=== PATIENT | male | born 1965 | race Caucasian/White ===

== ENCOUNTER 2022-08-23 10:32 | Emergency (ER) | payer OTHER, SELFPAY ==
[2022-08-23] VITALS (70 sets, daily range): BP systolic 105–138; BP diastolic 72–104; PULSE 86–107; RESP 16–18; TEMP 36.4–37.2; O2SAT 94–99
--- NOTE | 2022-08-23 10:53 | CRLHL7_ITS ---
For Patients: As a result of the Cures Act, medical imaging exams and procedure reports are released immediately into your electronic medical record. You may view this report before your referring provider. If you have questions, please contact your health care provider. INDICATION: Chest pain TECHNIQUE: Chest radiograph 1 view COMPARISON: None FINDINGS: Mediastinum: The mediastinum is normal in appearance. The heart silhouette is normal in size and morphology. Lung: Both lungs are unremarkable in appearance with small lung volumes. No sign of pleural effusion seen. No pneumothorax is identified. Bone and Soft tissue: Unremarkable for age. IMPRESSION: 1. No acute cardiopulmonary disease is seen. Dictated by: London Zhong MD @ 08/23/2022 12:36:30 (Electronically Signed)
--- NOTE | 2022-08-23 10:56 | ED.CHESTPAIN ---
HPI - Chest Pain General Chief Complaint: Chest Pain <Soham Davis MD - Last Filed: 08/24/22 08:47> Stated Complaint: Chest pains, Sick last 2 days <Soham Davis MD - Last Filed: 08/24/22 08:47> Time Seen by Provider: 08/23/22 10:40 <Soham Davis MD - Last Filed: 08/24/22 08:47> History of Present Illness HPI narrative: Pt is a 56 year old gentleman with no history of coronary disease who presents after having left sided chest pain with radiation to the left jaw for the past 15 hours. Pt has recently been sick with what he describes as a virus with chills cough and shortness of breath. Pt has not had influenza vaccination and is not up to date on his COVID booster. Pt has no diaphoreis, headache, objective recent fever or shortness of breath. No cough. Pt states that he overall does not feel well and that the pain is 6/10 in intensity and is dull. No other radiculopathy. No medications taken prior to coming in. <Soham Davis MD - Last Filed: 08/24/22 08:47> Related Data Home Medications: Home Medications Medication Instructions Recorded Confirmed pantoprazole 20 mg tablet,delayed mg PO 08/23/22 release <Soham Davis MD - Last Filed: 08/24/22 08:47> Allergies/Adverse Reactions: Allergies Allergy/AdvReac Type Severity Reaction Status Date / Time No Known Drug Allergies Allergy Verified 08/23/22 13:24 <Soham Davis MD - Last Filed: 08/24/22 08:47> Review of Systems Status of ROS Reports: 10 or more systems reviewed and unremarkable except as noted in History and below <Soham Davis MD - Last Filed: 08/24/22 08:47> [facility] Medical History: Medical History (Updated 08/23/22 @ 19:39 by Candice Montano MD) GERD (gastroesophageal reflux disease) Prostate cancer <Soham Davis MD - Last Filed: 08/24/22 08:47> Social History: Social History Smoking Status: Never smoker How often do you have a drink containing alcohol: never AUDIT-C Alcohol total score: 0 Non-prescribed substance use: denies use service: No <Soham Davis MD - Last Filed: 08/24/22 08:47> Exam Narrative Exam Narrative: EXAM GENERAL: Patient appears comfortable and well. EYES: No scleral icterus. THYROID: no thyroid nodules or thyromegaly. LYMPH: No supraclavicular or cervical lymphadenopathy. SKIN: Visible skin seen during exam normal or with benign process only. EXT: No dependent lower extremity pedal edema. HEART: Regular rate and rhythm with no murmurs, rubs, or gallops. LUNGS: Clear to auscultation bilaterally with no crackles or wheezes. ABD: Soft, non tender, non distended. PSYCH: Good eye contact, speech is not pressured. <Soham Davis MD - Last Filed: 08/24/22 08:47> Const Vital Signs, click to edit/add: Vital Signs - 24 hr 08/23/22 10:40 08/23/22 11:20 08/23/22 11:21 Temperature 97.6 F Pulse Rate 94 96 Pulse Rate [Right] 91 Respiratory Rate 16 Blood Pressure 106/85 Blood Pressure [Left Upper Arm] 117/98 H Pulse Oximetry 96 94 95 Oxygen Delivery Method Room Air 08/23/22 11:30 08/23/22 11:32 08/23/22 11:33 Temperature Pulse Rate 97 95 95 Pulse Rate [Right] Respiratory Rate Blood Pressure 106/90 H Blood Pressure [Left Upper Arm] Pulse Oximetry 95 95 95 Oxygen Delivery Method 08/23/22 11:45 08/23/22 12:00 08/23/22 12:01 Temperature Pulse Rate 98 100 99 Pulse Rate [Right] Respiratory Rate Blood Pressure 127/88 Blood Pressure [Left Upper Arm] Pulse Oximetry 95 97 98 Oxygen Delivery Method 08/23/22 12:15 08/23/22 12:17 08/23/22 12:29 Temperature Pulse Rate 100 100 93 Pulse Rate [Right] Respiratory Rate Blood Pressure 109/76 108/86 Blood Pressure [Left Upper Arm] Pulse Oximetry 96 95 98 Oxygen Delivery Method 08/23/22 12:34 08/23/22 12:35 08/23/22 12:45 Temperature Pulse Rate 97 96 90 Pulse Rate [Right] Respiratory Rate Blood Pressure 122/89 Blood Pressure [Left Upper Arm] Pulse Oximetry 96 98 98 Oxygen Delivery Method 08/23/22 12:47 08/23/22 13:00 08/23/22 13:02 Temperature Pulse Rate 89 88 90 Pulse Rate [Right] Respiratory Rate Blood Pressure 115/87 107/83 Blood Pressure [Left Upper Arm] Pulse Oximetry 98 97 97 Oxygen Delivery Method 08/23/22 13:15 08/23/22 13:16 08/23/22 13:17 Temperature Pulse Rate 91 92 92 Pulse Rate [Right] Respiratory Rate Blood Pressure 115/88 Blood Pressure [Left Upper Arm] Pulse Oximetry 98 98 97 Oxygen Delivery Method 08/23/22 13:34 08/23/22 13:35 08/23/22 13:43 Temperature Pulse Rate 93 97 93 Pulse Rate [Right] Respiratory Rate Blood Pressure 110/84 118/88 Blood Pressure [Left Upper Arm] Pulse Oximetry 95 97 94 Oxygen Delivery Method 08/23/22 13:45 08/23/22 13:47 08/23/22 14:00 Temperature Pulse Rate 93 97 93 Pulse Rate [Right] Respiratory Rate Blood Pressure 115/85 Blood Pressure [Left Upper Arm] Pulse Oximetry 96 98 96 Oxygen Delivery Method 08/23/22 14:01 08/23/22 14:15 08/23/22 14:16 Temperature Pulse Rate 97 96 98 Pulse Rate [Right] Respiratory Rate Blood Pressure 112/87 115/84 Blood Pressure [Left Upper Arm] Pulse Oximetry 98 97 96 Oxygen Delivery Method 08/23/22 14:27 08/23/22 14:29 08/23/22 14:30 Temperature Pulse Rate 107 H 102 H 100 Pulse Rate [Right] Respiratory Rate Blood Pressure 118/83 Blood Pressure [Left Upper Arm] Pulse Oximetry 97 96 98 Oxygen Delivery Method 08/23/22 14:31 08/23/22 14:45 08/23/22 15:00 Temperature Pulse Rate 101 H 99 100 Pulse Rate [Right] Respiratory Rate Blood Pressure 109/86 Blood Pressure [Left Upper Arm] Pulse Oximetry 98 98 98 Oxygen Delivery Method 08/23/22 15:04 08/23/22 15:26 08/23/22 16:00 Temperature Pulse Rate 104 H Pulse Rate [Right] 102 H 102 H Respiratory Rate 16 18 Blood Pressure Blood Pressure [Left Upper Arm] 138/104 H 117/93 H Pulse Oximetry 99 98 96 Oxygen Delivery Method Room Air Room Air 08/23/22 16:27 08/23/22 17:12 08/23/22 15:05 Temperature 98.9 F Pulse Rate 103 H Pulse Rate [Right] 93 99 Respiratory Rate 16 16 Blood Pressure Blood Pressure [Left Upper Arm] 114/80 127/72 Pulse Oximetry 96 96 98 Oxygen Delivery Method Room Air Room Air 08/23/22 15:15 08/23/22 15:20 08/23/22 15:30 Temperature Pulse Rate 101 H 101 H 100 Pulse Rate [Right] Respiratory Rate Blood Pressure 138/104 H Blood Pressure [Left Upper Arm] Pulse Oximetry 98 98 97 Oxygen Delivery Method 08/23/22 15:32 08/23/22 15:45 08/23/22 16:00 Temperature Pulse Rate 98 99 92 Pulse Rate [Right] Respiratory Rate Blood Pressure 127/90 H Blood Pressure [Left Upper Arm] Pulse Oximetry 97 97 98 Oxygen Delivery Method 08/23/22 16:04 08/23/22 16:10 08/23/22 16:15 Temperature Pulse Rate 86 91 95 Pulse Rate [Right] Respiratory Rate Blood Pressure 125/88 117/93 H Blood Pressure [Left Upper Arm] Pulse Oximetry 98 97 96 Oxygen Delivery Method 08/23/22 16:16 08/23/22 16:27 08/23/22 16:30 Temperature Pulse Rate 95 93 93 Pulse Rate [Right] Respiratory Rate Blood Pressure 114/80 Blood Pressure [Left Upper Arm] Pulse Oximetry 96 96 96 Oxygen Delivery Method 08/23/22 16:32 08/23/22 16:45 08/23/22 17:02 Temperature Pulse Rate 96 99 98 Pulse Rate [Right] Respiratory Rate Blood Pressure 123/85 Blood Pressure [Left Upper Arm] Pulse Oximetry 96 96 96 Oxygen Delivery Method 08/23/22 17:03 08/23/22 17:15 08/23/22 17:16 Temperature Pulse Rate 99 99 100 Pulse Rate [Right] Respiratory Rate Blood Pressure 127/72 120/76 Blood Pressure [Left Upper Arm] Pulse Oximetry 96 95 95 Oxygen Delivery Method 08/23/22 17:31 08/23/22 17:58 08/23/22 18:00 Temperature Pulse Rate 99 97 Pulse Rate [Right] Respiratory Rate Blood Pressure 105/78 Blood Pressure [Left Upper Arm] Pulse Oximetry 96 96 Oxygen Delivery Method 08/23/22 18:01 08/23/22 18:15 08/23/22 18:30 Temperature Pulse Rate 99 95 99 Pulse Rate [Right] Respiratory Rate Blood Pressure 110/81 Blood Pressure [Left Upper Arm] Pulse Oximetry 96 94 95 Oxygen Delivery Method 08/23/22 18:31 08/23/22 18:32 08/23/22 18:45 Temperature Pulse Rate 100 99 96 Pulse Rate [Right] Respiratory Rate Blood Pressure 113/81 Blood Pressure [Left Upper Arm] Pulse Oximetry 94 94 95 Oxygen Delivery Method 08/23/22 19:12 08/23/22 19:13 08/23/22 19:27 Temperature Pulse Rate 94 95 Pulse Rate [Right] 94 Respiratory Rate 18 Blood Pressure 136/84 Blood Pressure [Left Upper Arm] 128/78 Pulse Oximetry 94 96 94 Oxygen Delivery Method Room Air <Soham Davis MD - Last Filed: 08/24/22 08:47> Vital Signs - 24 hr 08/23/22 10:40 08/23/22 11:20 08/23/22 11:21 Temperature 97.6 F Pulse Rate 94 96 Pulse Rate [Right] 91 Respiratory Rate 16 Blood Pressure 106/85 Blood Pressure [Left Upper Arm] 117/98 H Pulse Oximetry 96 94 95 Oxygen Delivery Method Room Air 08/23/22 11:30 08/23/22 11:32 08/23/22 11:33 Temperature Pulse Rate 97 95 95 Pulse Rate [Right] Respiratory Rate Blood Pressure 106/90 H Blood Pressure [Left Upper Arm] Pulse Oximetry 95 95 95 Oxygen Delivery Method 08/23/22 11:45 08/23/22 12:00 08/23/22 12:01 Temperature Pulse Rate 98 100 99 Pulse Rate [Right] Respiratory Rate Blood Pressure 127/88 Blood Pressure [Left Upper Arm] Pulse Oximetry 95 97 98 Oxygen Delivery Method 08/23/22 12:15 08/23/22 12:17 08/23/22 12:29 Temperature Pulse Rate 100 100 93 Pulse Rate [Right] Respiratory Rate Blood Pressure 109/76 108/86 Blood Pressure [Left Upper Arm] Pulse Oximetry 96 95 98 Oxygen Delivery Method 08/23/22 12:34 08/23/22 12:35 08/23/22 12:45 Temperature Pulse Rate 97 96 90 Pulse Rate [Right] Respiratory Rate Blood Pressure 122/89 Blood Pressure [Left Upper Arm] Pulse Oximetry 96 98 98 Oxygen Delivery Method 08/23/22 12:47 08/23/22 13:00 08/23/22 13:02 Temperature Pulse Rate 89 88 90 Pulse Rate [Right] Respiratory Rate Blood Pressure 115/87 107/83 Blood Pressure [Left Upper Arm] Pulse Oximetry 98 97 97 Oxygen Delivery Method 08/23/22 13:15 08/23/22 13:16 08/23/22 13:17 Temperature Pulse Rate 91 92 92 Pulse Rate [Right] Respiratory Rate Blood Pressure 115/88 Blood Pressure [Left Upper Arm] Pulse Oximetry 98 98 97 Oxygen Delivery Method 08/23/22 13:34 08/23/22 13:35 08/23/22 13:43 Temperature Pulse Rate 93 97 93 Pulse Rate [Right] Respiratory Rate Blood Pressure 110/84 118/88 Blood Pressure [Left Upper Arm] Pulse Oximetry 95 97 94 Oxygen Delivery Method 08/23/22 13:45 08/23/22 13:47 08/23/22 14:00 Temperature Pulse Rate 93 97 93 Pulse Rate [Right] Respiratory Rate Blood Pressure 115/85 Blood Pressure [Left Upper Arm] Pulse Oximetry 96 98 96 Oxygen Delivery Method 08/23/22 14:01 08/23/22 14:15 08/23/22 14:16 Temperature Pulse Rate 97 96 98 Pulse Rate [Right] Respiratory Rate Blood Pressure 112/87 115/84 Blood Pressure [Left Upper Arm] Pulse Oximetry 98 97 96 Oxygen Delivery Method 08/23/22 14:27 08/23/22 14:29 08/23/22 14:30 Temperature Pulse Rate 107 H 102 H 100 Pulse Rate [Right] Respiratory Rate Blood Pressure 118/83 Blood Pressure [Left Upper Arm] Pulse Oximetry 97 96 98 Oxygen Delivery Method 08/23/22 14:31 08/23/22 14:45 08/23/22 15:00 Temperature Pulse Rate 101 H 99 100 Pulse Rate [Right] Respiratory Rate Blood Pressure 109/86 Blood Pressure [Left Upper Arm] Pulse Oximetry 98 98 98 Oxygen Delivery Method 08/23/22 15:04 08/23/22 15:26 08/23/22 16:00 Temperature Pulse Rate 104 H Pulse Rate [Right] 102 H 102 H Respiratory Rate 16 18 Blood Pressure Blood Pressure [Left Upper Arm] 138/104 H 117/93 H Pulse Oximetry 99 98 96 Oxygen Delivery Method Room Air Room Air 08/23/22 16:27 08/23/22 17:12 08/23/22 15:05 Temperature 98.9 F Pulse Rate 103 H Pulse Rate [Right] 93 99 Respiratory Rate 16 16 Blood Pressure Blood Pressure [Left Upper Arm] 114/80 127/72 Pulse Oximetry 96 96 98 Oxygen Delivery Method Room Air Room Air 08/23/22 15:15 08/23/22 15:20 08/23/22 15:30 Temperature Pulse Rate 101 H 101 H 100 Pulse Rate [Right] Respiratory Rate Blood Pressure 138/104 H Blood Pressure [Left Upper Arm] Pulse Oximetry 98 98 97 Oxygen Delivery Method 08/23/22 15:32 08/23/22 15:45 08/23/22 16:00 Temperature Pulse Rate 98 99 92 Pulse Rate [Right] Respiratory Rate Blood Pressure 127/90 H Blood Pressure [Left Upper Arm] Pulse Oximetry 97 97 98 Oxygen Delivery Method 08/23/22 16:04 08/23/22 16:10 08/23/22 16:15 Temperature Pulse Rate 86 91 95 Pulse Rate [Right] Respiratory Rate Blood Pressure 125/88 117/93 H Blood Pressure [Left Upper Arm] Pulse Oximetry 98 97 96 Oxygen Delivery Method 08/23/22 16:16 08/23/22 16:27 08/23/22 16:30 Temperature Pulse Rate 95 93 93 Pulse Rate [Right] Respiratory Rate Blood Pressure 114/80 Blood Pressure [Left Upper Arm] Pulse Oximetry 96 96 96 Oxygen Delivery Method 08/23/22 16:32 08/23/22 16:45 08/23/22 17:02 Temperature Pulse Rate 96 99 98 Pulse Rate [Right] Respiratory Rate Blood Pressure 123/85 Blood Pressure [Left Upper Arm] Pulse Oximetry 96 96 96 Oxygen Delivery Method 08/23/22 17:03 08/23/22 17:15 08/23/22 17:16 Temperature Pulse Rate 99 99 100 Pulse Rate [Right] Respiratory Rate Blood Pressure 127/72 120/76 Blood Pressure [Left Upper Arm] Pulse Oximetry 96 95 95 Oxygen Delivery Method 08/23/22 17:31 08/23/22 17:58 08/23/22 18:00 Temperature Pulse Rate 99 97 Pulse Rate [Right] Respiratory Rate Blood Pressure 105/78 Blood Pressure [Left Upper Arm] Pulse Oximetry 96 96 Oxygen Delivery Method 08/23/22 18:01 08/23/22 18:15 08/23/22 18:30 Temperature Pulse Rate 99 95 99 Pulse Rate [Right] Respiratory Rate Blood Pressure 110/81 Blood Pressure [Left Upper Arm] Pulse Oximetry 96 94 95 Oxygen Delivery Method 08/23/22 18:31 08/23/22 18:32 08/23/22 18:45 Temperature Pulse Rate 100 99 96 Pulse Rate [Right] Respiratory Rate Blood Pressure 113/81 Blood Pressure [Left Upper Arm] Pulse Oximetry 94 94 95 Oxygen Delivery Method 08/23/22 19:12 08/23/22 19:13 08/23/22 19:27 Temperature Pulse Rate 94 95 Pulse Rate [Right] 94 Respiratory Rate 18 Blood Pressure 136/84 Blood Pressure [Left Upper Arm] 128/78 Pulse Oximetry 94 96 94 Oxygen Delivery Method Room Air <Candice Montano MD - Last Filed: 08/23/22 19:41> Course Course Hospital Course: Pt seen and examined. EKG, Portable CXR, D dimer, Troponin, cbc, bmp ordered <Soham Davis MD - Last Filed: 08/24/22 08:47> Reevaluation(s) Reevaluation #1: Troponin 2.04. EKG no acute changes. D dimer pending. Remainder of labs normal. Pt given asa 325 and nitro 0.4 sl. Cardiology called. <Soham Davis MD - Last Filed: 08/24/22 08:47> Time: 11:58 <Soham Davis MD - Last Filed: 08/24/22 08:47> Reevaluation #2: Spoke with Cardiology Dr. Amaya who recommends beta yi and heparin. 5 mg of IV metoprolol given. Heparin drip started. Pt accepted to [facility] but there is a wait. <Soham Daivs MD - Last Filed: 08/24/22 08:47> Time: 12:09 <Soham Davis MD - Last Filed: 08/24/22 08:47> Reevaluation #3: D dimer elevated at 5.66. Pt stable. Will send over for PE protocol CT scan. <Soham Davis MD - Last Filed: 08/24/22 08:47> Time: 12:43 <Soham Davis MD - Last Filed: 08/24/22 08:47> Additional Reevaluation(s): CT PE Protocol negative for PE. Pt still having pain. Started on Nitroglycerin drip and Metoprolol 5 mg given IV for the second time. Moving up the wait list for [facility]. <Soham Davis MD - Last Filed: 08/24/22 08:47> Vital Signs Vital signs: Initial Vital Signs Temperature 97.6 F 08/23/22 10:40 Temperature Source Temporal Artery Scan 08/23/22 10:40 Pulse Rate 91 08/23/22 10:40 Pulse Rhythm 08/23/22 10:40 Respiratory Rate 16 08/23/22 10:40 Blood Pressure 117/98 H 08/23/22 10:40 Blood Pressure Mean 104 08/23/22 10:40 Pulse Oximetry 96 08/23/22 10:40 Oxygen Delivery Method 08/23/22 10:40 Vital Signs Temperature 97.6 F 08/23/22 10:40 Pulse Rate 91 08/23/22 10:40 Respiratory Rate 16 08/23/22 10:40 Blood Pressure 117/98 H 08/23/22 10:40 Pulse Oximetry 96 08/23/22 10:40 Oxygen Delivery Method 08/23/22 10:40 Temperature 98.9 F 08/23/22 17:12 Pulse Rate 94 08/23/22 19:27 Respiratory Rate 18 08/23/22 19:27 Blood Pressure 128/78 08/23/22 19:27 Pulse Oximetry 94 08/23/22 19:27 Oxygen Delivery Method 08/23/22 19:27 <Soham Davis MD - Last Filed: 08/24/22 08:47> Initial Vital Signs Temperature 97.6 F 08/23/22 10:40 Temperature Source Temporal Artery Scan 08/23/22 10:40 Pulse Rate 91 08/23/22 10:40 Pulse Rhythm 08/23/22 10:40 Respiratory Rate 16 08/23/22 10:40 Blood Pressure 117/98 H 08/23/22 10:40 Blood Pressure Mean 104 08/23/22 10:40 Pulse Oximetry 96 08/23/22 10:40 Oxygen Delivery Method 08/23/22 10:40 Vital Signs Temperature 97.6 F 08/23/22 10:40 Pulse Rate 91 08/23/22 10:40 Respiratory Rate 16 08/23/22 10:40 Blood Pressure 117/98 H 08/23/22 10:40 Pulse Oximetry 96 08/23/22 10:40 Oxygen Delivery Method 08/23/22 10:40 Temperature 98.9 F 08/23/22 17:12 Pulse Rate 94 08/23/22 19:27 Respiratory Rate 18 08/23/22 19:27 Blood Pressure 128/78 08/23/22 19:27 Pulse Oximetry 94 08/23/22 19:27 Oxygen Delivery Method 08/23/22 19:27 <Candice Montano MD - Last Filed: 08/23/22 19:41> MDM - Chest Pain MDM Narrative Medical decision making narrative: I assumed care from Dr. Davis. Patient remained asymptomatic while on heparin drip and nitroglycerin drip. He was given Zofran for fear of motion sickness and omeprazole for stomach discomfort during his stay. He transferred by EMS with no complications at 7:40 p.m.. <Candice Montano MD - Last Filed: 08/23/22 19:41> Lab Data Attestation: I reviewed the patient's lab results. <Candice Montano MD - Last Filed: 08/23/22 19:41> Labs: Lab Results 08/23/22 08/23/22 08/23/22 Range/Units 10:54 11:05 11:05 WBC 10.20 (4.50-11.00) K/uL RBC 5.47 (4.30-5.90) m/uL Hgb 15.6 (13.5-17.5) gm/dL Hct 45.7 (37.0-53.0) % MCV 84 (80-100) fL MCH 29 (26-34) pg MCHC 34 (32-36) gm/dL RDW Coeff of Maxine 12.3 (11.5-15.5) % Plt Count 156 (140-440) K/uL Neut % (Auto) 78.5 H (42.0-72.0) % Lymph % (Auto) 11.8 L (20-44) % Kinney % (Auto) 8.9 (0.0-11.0) % Eos % (Auto) 0.5 (0.0-7.0) % Baso % (Auto) 0.1 (0.0-3.0) % Neut # (Auto) 8.00 H (1.7-7.0) K/uL Lymph # (Auto) 1.20 (0.90-2.90) K/uL Kinney # (Auto) 0.90 (0.00-0.90) K/UL Eos # (Auto) 0.05 (0.00-0.50) K/uL Baso # (Auto) 0.01 (0.00-0.30) K/uL INR (0.91-1.10) APTT (23-33) Seconds D-Dimer Quant (PE/DVT) 5.66 H (0.00-0.50) ug/ml Sodium (135-149) mmol/L Potassium (3.6-5.1) mmol/L Chloride (96-114) mmol/L Carbon Dioxide (20-32) mmol/L BUN (7-30) mg/dL Creatinine (0.5-1.5) mg/dL Estimated Creat Clear Estimated GFR ml/min Glucose (60-115) mg/dL Calcium (8.4-10.6) mg/dL Total Bilirubin (0.1-1.5) mg/dL AST (12-35) U/L ALT (4-50) U/L Alkaline Phosphatase (40-150) U/L Troponin I (0.01-0.04) ng/mL Total Protein (6.0-8.3) g/dL Albumin (3.3-5.0) g/dL SARS-CoV-2 (PCR) Negative SARS-CoV-2 (Negative) Influenza Type A (PCR) Negative PCR FLU A (Negative) Influenza Type B (PCR) Negative PCR FLU B (Negative) RSV (PCR) Negative PCR RSV (Negative) 08/23/22 08/23/22 08/23/22 Range/Units 11:05 11:05 11:05 WBC (4.50-11.00) K/uL RBC (4.30-5.90) m/uL Hgb (13.5-17.5) gm/dL Hct (37.0-53.0) % MCV (80-100) fL MCH (26-34) pg MCHC (32-36) gm/dL RDW Coeff of Maxine (11.5-15.5) % Plt Count (140-440) K/uL Neut % (Auto) (42.0-72.0) % Lymph % (Auto) (20-44) % Kinney % (Auto) (0.0-11.0) % Eos % (Auto) (0.0-7.0) % Baso % (Auto) (0.0-3.0) % Neut # (Auto) (1.7-7.0) K/uL Lymph # (Auto) (0.90-2.90) K/uL Kinney # (Auto) (0.00-0.90) K/UL Eos # (Auto) (0.00-0.50) K/uL Baso # (Auto) (0.00-0.30) K/uL INR 1.01 (0.91-1.10) APTT 29 (23-33) Seconds D-Dimer Quant (PE/DVT) (0.00-0.50) ug/ml Sodium 135 (135-149) mmol/L Potassium 3.8 (3.6-5.1) mmol/L Chloride 100 (96-114) mmol/L Carbon Dioxide 29 (20-32) mmol/L BUN 17 (7-30) mg/dL Creatinine 0.9 (0.5-1.5) mg/dL Estimated Creat Clear 109.54 Estimated GFR 100 ml/min Glucose 116 H (60-115) mg/dL Calcium 8.7 (8.4-10.6) mg/dL Total Bilirubin 1.3 (0.1-1.5) mg/dL AST 35 (12-35) U/L ALT 36 (4-50) U/L Alkaline Phosphatase 53 (40-150) U/L Troponin I 2.04 H* (0.01-0.04) ng/mL Total Protein 8.4 H (6.0-8.3) g/dL Albumin 4.2 (3.3-5.0) g/dL SARS-CoV-2 (PCR) (Negative) Influenza Type A (PCR) (Negative) Influenza Type B (PCR) (Negative) RSV (PCR) (Negative) 08/23/22 Range/Units 14:47 WBC (4.50-11.00) K/uL RBC (4.30-5.90) m/uL Hgb (13.5-17.5) gm/dL Hct (37.0-53.0) % MCV (80-100) fL MCH (26-34) pg MCHC (32-36) gm/dL RDW Coeff of Maxine (11.5-15.5) % Plt Count (140-440) K/uL Neut % (Auto) (42.0-72.0) % Lymph % (Auto) (20-44) % Kinney % (Auto) (0.0-11.0) % Eos % (Auto) (0.0-7.0) % Baso % (Auto) (0.0-3.0) % Neut # (Auto) (1.7-7.0) K/uL Lymph # (Auto) (0.90-2.90) K/uL Kinney # (Auto) (0.00-0.90) K/UL Eos # (Auto) (0.00-0.50) K/uL Baso # (Auto) (0.00-0.30) K/uL INR (0.91-1.10) APTT (23-33) Seconds D-Dimer Quant (PE/DVT) (0.00-0.50) ug/ml Sodium (135-149) mmol/L Potassium (3.6-5.1) mmol/L Chloride (96-114) mmol/L Carbon Dioxide (20-32) mmol/L BUN (7-30) mg/dL Creatinine (0.5-1.5) mg/dL Estimated Creat Clear Estimated GFR ml/min Glucose (60-115) mg/dL Calcium (8.4-10.6) mg/dL Total Bilirubin (0.1-1.5) mg/dL AST (12-35) U/L ALT (4-50) U/L Alkaline Phosphatase (40-150) U/L Troponin I 2.71 H* (0.01-0.04) ng/mL Total Protein (6.0-8.3) g/dL Albumin (3.3-5.0) g/dL SARS-CoV-2 (PCR) (Negative) Influenza Type A (PCR) (Negative) Influenza Type B (PCR) (Negative) RSV (PCR) (Negative) <Soham Davis MD - Last Filed: 08/24/22 08:47> Lab Results 08/23/22 08/23/22 08/23/22 Range/Units 10:54 11:05 11:05 WBC 10.20 (4.50-11.00) K/uL RBC 5.47 (4.30-5.90) m/uL Hgb 15.6 (13.5-17.5) gm/dL Hct 45.7 (37.0-53.0) % MCV 84 (80-100) fL MCH 29 (26-34) pg MCHC 34 (32-36) gm/dL RDW Coeff of Maxine 12.3 (11.5-15.5) % Plt Count 156 (140-440) K/uL Neut % (Auto) 78.5 H (42.0-72.0) % Lymph % (Auto) 11.8 L (20-44) % Kinney % (Auto) 8.9 (0.0-11.0) % Eos % (Auto) 0.5 (0.0-7.0) % Baso % (Auto) 0.1 (0.0-3.0) % Neut # (Auto) 8.00 H (1.7-7.0) K/uL Lymph # (Auto) 1.20 (0.90-2.90) K/uL Kinney # (Auto) 0.90 (0.00-0.90) K/UL Eos # (Auto) 0.05 (0.00-0.50) K/uL Baso # (Auto) 0.01 (0.00-0.30) K/uL INR (0.91-1.10) APTT (23-33) Seconds D-Dimer Quant (PE/DVT) 5.66 H (0.00-0.50) ug/ml Sodium (135-149) mmol/L Potassium (3.6-5.1) mmol/L Chloride (96-114) mmol/L Carbon Dioxide (20-32) mmol/L BUN (7-30) mg/dL Creatinine (0.5-1.5) mg/dL Estimated Creat Clear Estimated GFR ml/min Glucose (60-115) mg/dL Calcium (8.4-10.6) mg/dL Total Bilirubin (0.1-1.5) mg/dL AST (12-35) U/L ALT (4-50) U/L Alkaline Phosphatase (40-150) U/L Troponin I (0.01-0.04) ng/mL Total Protein (6.0-8.3) g/dL Albumin (3.3-5.0) g/dL SARS-CoV-2 (PCR) Negative SARS-CoV-2 (Negative) Influenza Type A (PCR) Negative PCR FLU A (Negative) Influenza Type B (PCR) Negative PCR FLU B (Negative) RSV (PCR) Negative PCR RSV (Negative) 08/23/22 08/23/22 08/23/22 Range/Units 11:05 11:05 11:05 WBC (4.50-11.00) K/uL RBC (4.30-5.90) m/uL Hgb (13.5-17.5) gm/dL Hct (37.0-53.0) % MCV (80-100) fL MCH (26-34) pg MCHC (32-36) gm/dL RDW Coeff of Maxine (11.5-15.5) % Plt Count (140-440) K/uL Neut % (Auto) (42.0-72.0) % Lymph % (Auto) (20-44) % Kinney % (Auto) (0.0-11.0) % Eos % (Auto) (0.0-7.0) % Baso % (Auto) (0.0-3.0) % Neut # (Auto) (1.7-7.0) K/uL Lymph # (Auto) (0.90-2.90) K/uL Kinney # (Auto) (0.00-0.90) K/UL Eos # (Auto) (0.00-0.50) K/uL Baso # (Auto) (0.00-0.30) K/uL INR 1.01 (0.91-1.10) APTT 29 (23-33) Seconds D-Dimer Quant (PE/DVT) (0.00-0.50) ug/ml Sodium 135 (135-149) mmol/L Potassium 3.8 (3.6-5.1) mmol/L Chloride 100 (96-114) mmol/L Carbon Dioxide 29 (20-32) mmol/L BUN 17 (7-30) mg/dL Creatinine 0.9 (0.5-1.5) mg/dL Estimated Creat Clear 109.54 Estimated GFR 100 ml/min Glucose 116 H (60-115) mg/dL Calcium 8.7 (8.4-10.6) mg/dL Total Bilirubin 1.3 (0.1-1.5) mg/dL AST 35 (12-35) U/L ALT 36 (4-50) U/L Alkaline Phosphatase 53 (40-150) U/L Troponin I 2.04 H* (0.01-0.04) ng/mL Total Protein 8.4 H (6.0-8.3) g/dL Albumin 4.2 (3.3-5.0) g/dL SARS-CoV-2 (PCR) (Negative) Influenza Type A (PCR) (Negative) Influenza Type B (PCR) (Negative) RSV (PCR) (Negative) 08/23/22 Range/Units 14:47 WBC (4.50-11.00) K/uL RBC (4.30-5.90) m/uL Hgb (13.5-17.5) gm/dL Hct (37.0-53.0) % MCV (80-100) fL MCH (26-34) pg MCHC (32-36) gm/dL RDW Coeff of Maxine (11.5-15.5) % Plt Count (140-440) K/uL Neut % (Auto) (42.0-72.0) % Lymph % (Auto) (20-44) % Kinney % (Auto) (0.0-11.0) % Eos % (Auto) (0.0-7.0) % Baso % (Auto) (0.0-3.0) % Neut # (Auto) (1.7-7.0) K/uL Lymph # (Auto) (0.90-2.90) K/uL Kinney # (Auto) (0.00-0.90) K/UL Eos # (Auto) (0.00-0.50) K/uL Baso # (Auto) (0.00-0.30) K/uL INR (0.91-1.10) APTT (23-33) Seconds D-Dimer Quant (PE/DVT) (0.00-0.50) ug/ml Sodium (135-149) mmol/L Potassium (3.6-5.1) mmol/L Chloride (96-114) mmol/L Carbon Dioxide (20-32) mmol/L BUN (7-30) mg/dL Creatinine (0.5-1.5) mg/dL Estimated Creat Clear Estimated GFR ml/min Glucose (60-115) mg/dL Calcium (8.4-10.6) mg/dL Total Bilirubin (0.1-1.5) mg/dL AST (12-35) U/L ALT (4-50) U/L Alkaline Phosphatase (40-150) U/L Troponin I 2.71 H* (0.01-0.04) ng/mL Total Protein (6.0-8.3) g/dL Albumin (3.3-5.0) g/dL SARS-CoV-2 (PCR) (Negative) Influenza Type A (PCR) (Negative) Influenza Type B (PCR) (Negative) RSV (PCR) (Negative) <Candice Montano MD - Last Filed: 08/23/22 19:41> Discharge Plan Discharge Clinical Impression: Non-STEMI (non-ST elevated myocardial infarction) <Soham Davis MD - Last Filed: 08/24/22 08:47> Patient Disposition: [facility] <Soham Davis MD - Last Filed: 08/24/22 08:47> Discharge Location: [facility] <Soham Davis MD - Last Filed: 08/24/22 08:47> Condition: Stable <Soham Davis MD - Last Filed: 08/24/22 08:47> Activity Level: Other <Soham Davis MD - Last Filed: 08/24/22 08:47> Other <Candice Montano MD - Last Filed: 08/23/22 19:41> Discharge Diet: Other <Soham Davis MD - Last Filed: 08/24/22 08:47> Other <Candice Montano MD - Last Filed: 08/23/22 19:41> Prescriptions: No Action pantoprazole 20 mg tablet,delayed release (DR/EC) PO Label Comments: TAKE 1 TABLET BY MOUTH THREE TIMES DAILY BEFORE MEAL(S) <Soham Davis MD - Last Filed: 08/24/22 08:47> Stand Alone Forms: [employer] Info Instructions <Soham Davis MD - Last Filed: 08/24/22 08:47>
[2022-08-23 11:16] LABS: Basophils Absolute Auto 0.01 K/uL (0.00-0.30); Basophils Percent Auto 0.1 % (0.0-3.0); Eosinophils Absolute Auto 0.05 K/uL (0.00-0.50); Eosinophils Percent Auto 0.5 % (0.0-7.0); Hematocrit 45.7 % (37.0-53.0); Hemoglobin* 15.6 gm/dL (13.5-17.5); Immature Granulocytes Abs Auto 0.02 K/uL (0.00-0.30); Immature Granulocytes Pct Auto 0.2 %; Lymphocytes Percent Auto 11.8 % (20-44); Mean Corpuscular HGB Conc 34 gm/dL (32-36); Mean Corpuscular Hemoglobin 29 pg (26-34); Mean Corpuscular Volume 84 fL (80-100); Monocytes Percent Auto 8.9 % (0.0-11.0); Neutrophils Percent Auto 78.5 % (42.0-72.0); Platelet Count* 156 K/uL (140-440); RDW Coefficient of Variation % 12.3 % (11.5-15.5); Red Blood Count 5.47 m/uL (4.30-5.90)
[2022-08-23 11:21] LABS: Slide Review Reflex No
[2022-08-23 11:34] LABS: Albumin* 4.2 g/dL (3.3-5.0); Chloride* 100 mmol/L (96-114); Potassium* 3.8 mmol/L (3.6-5.1); Sodium* 135 mmol/L (135-149)
[2022-08-23 11:36] LABS: Aspartate Amino Transferase* 35 U/L (12-35); Bilirubin Total* 1.3 mg/dL (0.1-1.5); Carbon Dioxide* 29 mmol/L (20-32); Creatinine* 0.9 mg/dL (0.5-1.5); Est. Creatinine Clearance* 109.54; Estimated Glomerular Filt Rate 100 ml/min; Total Protein* 8.4 g/dL (6.0-8.3)
[2022-08-23 11:37] LABS: Alanine Aminotransferase* 36 U/L (4-50); Alkaline Phosphatase* 53 U/L (40-150); Blood Urea Nitrogen* 17 mg/dL (7-30); Calcium* 8.7 mg/dL (8.4-10.6); Glucose* 116 mg/dL (60-115)
[2022-08-23 11:52] LABS: Troponin I* 2.04 ng/mL (0.01-0.04)
--- NOTE | 2022-08-23 11:52 | ED.NURSE ---
call from lab, critical troponin, care nurse and MD notified.
[2022-08-23 12:03] LABS: PCR FLU A Negative PCR FLU A (Negative); PCR FLU B Negative PCR FLU B (Negative); PCR RSV Negative PCR RSV (Negative)
[2022-08-23 12:04] LABS: D Dimer Quantitative* 5.66 ug/ml (0.00-0.50)
[2022-08-23 12:09] LABS: SARS PCR* Negative SARS-CoV-2 (Negative)
[2022-08-23] MEDS: ASPIRIN 81 MG TAB.CHEW 324 MG PO (12:09)
[2022-08-23] MEDS: NITROGLYCERIN 0.4 MG TAB.SUBL SUBLINGUAL ×2 (12:09→13:41)
--- NOTE | 2022-08-23 12:14 | ED.NURSE ---
call to lab, they will run pt inr ptt
[2022-08-23 12:24] LABS: INR 1.01 (0.91-1.10); Prothrombin Time 13.9 Seconds
[2022-08-23 12:25] LABS: Partial Thromboplastin Time* 29 Seconds (23-33)
[2022-08-23] MEDS: METOPROLOL TARTRATE 1 MG/ML inj 5 MG IVP ×2 (12:34→15:45)
[2022-08-23] MEDS: HEPARIN 5,000 UNIT/0.5 ML INJ 4000 UNIT IVP (12:35)
[2022-08-23] MEDS: HEPARIN 25,000 UNIT/500 ML BAG 20 UNIT IV (12:36)
--- NOTE | 2022-08-23 12:42 | ED.NURSE ---
Heparin infusion started at 12:36 pm
--- NOTE | 2022-08-23 12:45 | CRLHL7_ITS ---
For Patients: As a result of the Century Cures Act, medical imaging exams and procedure reports are released immediately into your electronic medical record. You may view this report before your referring provider. If you have questions, please contact your health care provider. INDICATION: Elevated D-dimer. Chest pressure. TECHNIQUE: CT chest PE was acquired with 95 cc Isovue 370 IV contrast. COMPARISON: None. FINDINGS: Heart and vasculature: Contrast opacification of the pulmonary arterial tree is adequate. No sign of pulmonary embolism. Heart size is normal. Thoracic aorta and pulmonary artery are normal in caliber. Lungs and pleura: No suspicious nodules or infiltrates. No pleural effusions, pleural thickening, or pneumothorax. Lymph nodes/mediastinum: No mediastinal, hilar, or axillary adenopathy. Chest wall: No masses. Upper abdomen: No acute or significant findings. Bones: Unremarkable for age. IMPRESSION: Normal CT of the chest. No pulmonary embolism and the lungs are clear. Please note that all CT scans at this facility use dose modulation, iterative reconstruction, and/or weight-based dosing when appropriate to reduce radiation dose to as low as reasonably achievable. Dictated by Kevin Johnson MD @ 08/23/2022 3:20:26 PM (Electronically Signed)
[2022-08-23 15:29] LABS: Troponin I* 2.71 ng/mL (0.01-0.04)
[2022-08-23] MEDS: NITROGLYCERIN/DEXTROSE 25,000 MCG/250 ML BOTTLE 3 MCG IVPB (15:50)
--- NOTE | 2022-08-23 16:21 | PC.NURSE ---
Pt sitting up at bedside, states pain is more in left shoulder now than chest but still increases to a 6/10 with breathing. Vitals stable, at bedside, discussing medications that were started and updated plan of care/transfer to [place].
[2022-08-23] MEDS: OMEPRAZOLE 20 MG CAPSULE DR PO (17:19)
--- NOTE | 2022-08-23 18:33 | PC.NURSE ---
pt updated that he is second in line for transfer and admit to [facility]. pt at bedside. pain has improved from 6-7/10 down to 3-4/10. feels much better. Pain is currently left chest/shoulder. states the pain increases with a deep breath. pt denies any other symptoms. Had slight headache which has improved. VSS, will continue to assess, instructed pt to inform staff if any changes/pain/other concerns.
--- NOTE | 2022-08-23 19:10 | PC.NURSE ---
report given to BRANDON Carr at [place], Pt ready for transfer. Will be going to [facility]. If delay is to be more than 30 minutes for transfer we are to call.
[2022-08-23] MEDS: ONDANSETRON 2 MG/ML inj 4 MG IVP (19:22)
--- NOTE | 2022-08-23 19:37 | ED.NURSE ---
pt transferred to [facility] via EMS at 1938. Vitally stable, room air, sinus rythm
== END 2022-08-23 19:41 | disposition short-term general hospital (02) ==
PROVIDERS: Emergency Provider Internal Medicine; PCP Family Medicine
DX: I21.4 Non-ST elevation (NSTEMI) myocardial infarction (principal)
CPT/HCPCS: 36415; 71045; 71260; 80053; 84484; 85025; 85379; 85610; 85730; 87502; 87634; 87635; 93005; 96365; 96366; 96375; 99284; 99285; A9270; J1644; J2405; Q9967

== ENCOUNTER 2022-08-23 19:26 | Outpatient (CLI) | payer OTHER, SELFPAY | END 2022-08-23 19:27 | disposition home or self-care (01) | PROVIDERS: PCP Family Medicine; Visit Provider Family Medicine | DX: I21.4 Non-ST elevation (NSTEMI) myocardial infarction (principal) | CPT/HCPCS: A0425; A0434 ==

== ENCOUNTER 2023-01-14 09:51 | Emergency (ER) | payer OTHER, SELFPAY ==
[2023-01-14 09:57] VITALS: BP 126/84; PULSE 74; RESP 18; TEMP 36.3; O2SAT 99
--- NOTE | 2023-01-14 10:08 | ED.CHESTPAIN ---
HPI - Chest Pain General Time Seen by Provider: 10:08 Date Seen: 01/14/23 Chief Complaint: Chest Pain Stated Complaint: Chest pain this weekend Time Seen by Provider: 01/14/23 10:08 Source: patient and RN notes reviewed Mode of arrival: ambulatory Limitations: no limitations History of Present Illness HPI narrative: Patient is a 57-year-old male coming in with concern of chest discomfort that was happening on the weekend. On Saturday and Saturday he had intermittent recurring left-sided chest discomfort lasting minutes probably. He noted no respiratory symptoms with this, no sense of palpitations or irregular heartbeat. He was transferred from here on August 23 with presumed NSTEMI. 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 He states he did not get an angiogram has not had any recent stress test done. Patient is phos to be leaving to [place] on a trip this Saturday. He has had some underlying cough that is improving. No fevers or chills, no associated GI symptoms. He does not have the chest discomfort now. This is not like when he had is myocarditis, nothing like that. MD complaint: chest pain Timing of current episode: episodic Related Data Home Medications Medication Instructions Recorded Confirmed pantoprazole 20 mg tablet,delayed mg PO 08/23/22 release Allergies Allergy/AdvReac Type Severity Reaction Status Date / Time No Known Drug Allergies Allergy Verified 01/14/23 12:31 Review of Systems Status of ROS Reports: 6 or more systems reviewed and unremarkable except as noted in History and below [facility] Medical History (Updated 01/14/23 @ 15:00 by Puja Capps MD) Prostate cancer ?C61 - Malignant neoplasm of prostate (ICD-10) GERD (gastroesophageal reflux disease) ?K21.9 - Gastro-esophageal reflux disease without esophagitis (ICD-10) Social History Smoking Status: Never smoker How often do you have a drink containing alcohol: 2-4 times a month How many standard drinks containing alcohol do you have on a typical day: 3 or 4 How often do you have six or more drinks on one occasion: Never AUDIT-C Alcohol total score: 3 Non-prescribed substance use: denies use service: No Exam Const Vital Signs, click to edit/add: Vital Signs - 24 hr 01/14/23 09:57 01/14/23 11:27 01/14/23 12:38 Temperature 97.4 F L 97.6 F Pulse Rate [Pulse Oximeter] 74 77 Respiratory Rate 18 20 Blood Pressure [Right Upper Arm] 126/84 123/80 Pulse Oximetry 99 97 99 Oxygen Delivery Method Room Air Room Air 01/14/23 14:30 Temperature 98.3 F Pulse Rate [Pulse Oximeter] 69 Respiratory Rate 20 Blood Pressure [Right Upper Arm] 115/72 Pulse Oximetry 98 Oxygen Delivery Method Room Air Documenting provider has reviewed patient's vital signs: yes Common normals: no apparent distress, average body habitus, oriented x3, no limitations, healthy appearing, alert and well nourished General appearance: cooperative, comfortable, well kempt and well developed HENNJ Common normals: normocephalic, head/scalp atraumatic, hearing grossly normal bilaterally and external nose normal Head and scalp: normocephalic and atraumatic Face and sinus: normal facial exam Nose: external nose normal Eye Common normals: PERRL, EOMs intact bilaterally, conjunctivae normal and no scleral icterus Conjunctiva: conjunctiva(e) normal Pupil: PERRL Neck & C-Spine Common normals: full ROM, no lymphadenopathy, supple, no meningeal signs, no JVD and thyroid normal Thyroid: thyroid normal Chest Common normals: inspection of chest normal and palpation of chest normal Resp Common normals: normal respiratory effort, no retractions, no use of accessory muscles and clear to auscultation bilaterally Effort & inspection: able to speak in complete sentences Auscultation: clear to auscultation bilaterally Cardio Common normals: no JVD, regular rate, regular rhythm, S1 normal heart sound, S2 normal heart sound, no gallops, no clicks and no murmurs Rate: regular rate Rhythm: regular rhythm Heart sounds: S1 normal and S2 normal Extremity Other: No lower extremity edema. Neuro Common normals: oriented x3 Sensorium/orientation: alert Meningeal signs: no meningeal signs Psych Appearance: well kempt Course Reevaluation(s) Time of Reevaluation #1: 11:58 Reevaluation #1: Have reviewed with patient that his D-dimer is elevated, heart enzyme is normal. We will be proceeding with chest CT PE protocol. He is asymptomatic at this time. Denies any recent calf pain or lower extremity edema. Occasionally when he takes his socks off he will have a sock line but no true edema or calf pain. Time of Reevaluation #2: 14:40 Reevaluation #2: Patient is advised his chest CT is not showing any pulmonary emboli. He has bronchial wall thickening. He admits that he had recently been sick and is definitely improving. He states he was much more ill initially. No fevers, cough is improving, nonproductive. I do not feel he needs antibiotics, white blood count would not suggest antibiotics are indicated either. We are going to discharge to home. I do recommend that he have an outpatient follow-up stress test scheduled. He will need to go through his primary care provider. It is extremely doubtful that he will get this done before leaving on Saturday. He does know that. Vital Signs Vital signs: Initial Vital Signs Temperature 97.4 F L 01/14/23 09:57 Temperature Source Temporal Artery Scan 01/14/23 09:57 Pulse Rate 74 01/14/23 09:57 Respiratory Rate 18 01/14/23 09:57 Blood Pressure 126/84 01/14/23 09:57 Blood Pressure Mean 98 01/14/23 09:57 Blood Pressure Position Supine 01/14/23 09:57 Pulse Oximetry 99 01/14/23 09:57 Oxygen Delivery Method Room Air 01/14/23 09:57 Vital Signs Temperature 97.4 F L 01/14/23 09:57 Pulse Rate 74 01/14/23 09:57 Respiratory Rate 18 01/14/23 09:57 Blood Pressure 126/84 01/14/23 09:57 Pulse Oximetry 99 01/14/23 09:57 Oxygen Delivery Method Room Air 01/14/23 09:57 Temperature 98.3 F 01/14/23 14:30 Pulse Rate 69 01/14/23 14:30 Respiratory Rate 20 01/14/23 14:30 Blood Pressure 115/72 01/14/23 14:30 Pulse Oximetry 98 01/14/23 14:30 Oxygen Delivery Method Room Air 01/14/23 14:30 MDM - Chest Pain Lab Data Attestation: I reviewed the patient's lab results. Labs: Lab Results 01/14/23 01/14/23 01/14/23 Range/Units 09:55 10:50 14:05 WBC 4.08 L (4.50-11.00) K/uL RBC 5.42 (4.30-5.90) m/uL Hgb 15.3 (13.5-17.5) gm/dL Hct 45.4 (37.0-53.0) % MCV 84 (80-100) fL MCH 28 (26-34) pg MCHC 34 (32-36) gm/dL RDW Coeff of Maxine 12.0 (11.5-15.5) % Plt Count 173 (140-440) K/uL Neut % (Auto) 60.6 (42.0-72.0) % Lymph % (Auto) 25.5 (20-44) % Jay % (Auto) 8.8 (0.0-11.0) % Eos % (Auto) 4.9 (0.0-7.0) % Baso % (Auto) 0.2 (0.0-3.0) % Neut # (Auto) 2.50 (1.7-7.0) K/uL Lymph # (Auto) 1.00 (0.90-2.90) K/uL Jay # (Auto) 0.40 (0.00-0.90) K/UL Eos # (Auto) 0.20 (0.00-0.50) K/uL Baso # (Auto) 0.00 (0.00-0.30) K/uL D-Dimer Quant (PE/DVT) 5.91 H (0.00-0.50) ug/ml Sodium 137 (135-149) mmol/L Potassium 4.0 (3.6-5.1) mmol/L Chloride 103 (96-114) mmol/L Carbon Dioxide 24 (20-32) mmol/L BUN 16 (7-30) mg/dL Creatinine 0.8 (0.5-1.5) mg/dL Estimated Creat Clear 121.76 Estimated GFR 103 ml/min Glucose 103 (60-115) mg/dL Lactate 1.4 (0.5-1.9) mmol/L Calcium 9.0 (8.4-10.6) mg/dL Total Bilirubin 0.6 (0.1-1.5) mg/dL AST 29 (12-35) U/L ALT 32 (4-50) U/L Alkaline Phosphatase 68 (40-150) U/L C-Reactive Protein 0.6 (0.5-1.0) mg/dL NT-Pro-B Natriuret Pep 45 pg/mL Total Protein 8.8 H (6.0-8.3) g/dL Albumin 4.5 (3.3-5.0) g/dL POC Troponin I 0.00 L 0.02 (0.01-0.04) ng/ml Imaging Data Chest x-ray: Attestation: I have reviewed the pertinent imaging results. My impression: I see no acute pathology on my preliminary review. Radiologist's impression: Patient: TRA MCCAIN Facility:?[facility] Patient ID:?[id number] Site Patient ID:?[id number]. Site :?1965 Study:?XRay Chest PORTABLE-01/14/2023 10:30:48 AM Ordering Physician:?Génesis Luo Final Report: INDICATION: Chest pain TECHNIQUE: Chest 1 view COMPARISON: 08/23/2022 FINDINGS: Degenerative changes are present at both shoulders. Lungs are clear. Mediastinum is similar. IMPRESSION: No acute findings. Dictated by Nikhil Varela MD @ 01/14/2023 10:33:53 AM (Electronic Signature) CT scan - chest: Attestation: I have reviewed the pertinent imaging results. Radiologist's impression: Patient: TRA MCCAIN Facility:?[facility] Patient ID:?[id number] Site Patient ID:?[id number]. Site :?1965 Study:?CT Chest Angio w/ 95cc Isovue-370 PE Protocol-01/14/2023 12:38:08 PM Ordering Physician:?Génesis Luo Final Report: INDICATION: Shortness of breath. TECHNIQUE: CT chest PE was acquired with 95 cc Isovue 370 IV contrast. COMPARISON: 08/23/2022. FINDINGS: Heart and vasculature: Contrast opacification of the pulmonary arterial tree is adequate. No sign of pulmonary embolism. Heart size is normal. Thoracic aorta and pulmonary artery are normal in caliber. Lungs and pleura: No suspicious nodules or infiltrates. There is mild diffuse thickening of large airways. No pleural effusions, pleural thickening, or pneumothorax. Lymph nodes/mediastinum: No mediastinal, hilar, or axillary adenopathy. There is a small amount of fluid within the distal esophagus Chest wall: No masses. Upper abdomen: Left renal parapelvic cysts. Bones: Unremarkable for age. IMPRESSION: 1. Negative for pulmonary embolism. 2. Mild diffuse large airways thickening. Please note that all CT scans at this facility use dose modulation, iterative reconstruction, and/or weight-based dosing when appropriate to reduce radiation dose to as low as reasonably achievable. Dictated by Mg Castro MD @ 01/14/2023 2:09:52 PM (Electronic Signature) ECG Data Attestation: I personally reviewed and interpreted this ECG as follows: (Normal sinus rhythm, 68 beats per minute, no ischemic changes. QT corrected 397 milliseconds.) ECG interpretation date: 01/14/23 ECG interpretation time: 10:43 Prior ECG tracings: available for review (No significant change.) Critical Care Time Critical Care Time Critical Care Time: No Discharge Plan Discharge Clinical Impression: Recent upper respiratory tract infection, Chest pain Patient Disposition: Home, Self-Care Condition: Stable Instructions: Chest Pain (ED), Upper Respiratory Infection (ED) Additional Instructions: Do need to follow up with her primary care provider in do recommend getting scheduled for an outpatient cardiac stress test. In the meantime, she do develop increasing chest pain, increased difficulty breathing, increased cough, fever or air developed new or concerning symptoms, recommend re-evaluation. Activity Level: Activity as Tolerated Prescriptions: No Action pantoprazole 20 mg tablet,delayed release (DR/EC) PO Patient Comments: TAKE 1 TABLET BY MOUTH THREE TIMES DAILY BEFORE MEAL(S) Follow Up/Referrals: Osmin Abreu MD [Primary Care Provider] - Stand Alone Forms: [employer] Info Instructions
--- NOTE | 2023-01-14 10:12 | CRLHL7_ITS ---
For Patients: As a result of the Century Cures Act, medical imaging exams and procedure reports are released immediately into your electronic medical record. You may view this report before your referring provider. If you have questions, please contact your health care provider. INDICATION: Chest pain TECHNIQUE: Chest 1 view COMPARISON: 08/23/2022 FINDINGS: Degenerative changes are present at both shoulders. Lungs are clear. Mediastinum is similar. IMPRESSION: No acute findings. Dictated by Nikhil Varela MD @ 01/14/2023 10:33:53 AM (Electronically Signed)
[2023-01-14 10:54] LABS: Lactate* 1.4 mmol/L (0.5-1.9)
[2023-01-14 10:56] LABS: Basophils Percent Auto 0.2 % (0.0-3.0); Eosinophils Percent Auto 4.9 % (0.0-7.0); Hematocrit 45.4 % (37.0-53.0); Hemoglobin* 15.3 gm/dL (13.5-17.5); Lymphocytes Percent Auto 25.5 % (20-44); Mean Corpuscular HGB Conc 34 gm/dL (32-36); Mean Corpuscular Hemoglobin 28 pg (26-34); Mean Corpuscular Volume 84 fL (80-100); Monocytes Percent Auto 8.8 % (0.0-11.0); Neutrophils Percent Auto 60.6 % (42.0-72.0); Platelet Count* 173 K/uL (140-440); Red Blood Count 5.42 m/uL (4.30-5.90); White Blood Count* 4.08 K/uL (4.50-11.00)
[2023-01-14 11:02] LABS: Slide Review Reflex No
[2023-01-14 11:13] LABS: Albumin* 4.5 g/dL (3.3-5.0); Chloride* 103 mmol/L (96-114)
[2023-01-14 11:14] LABS: Sodium* 137 mmol/L (135-149)
[2023-01-14 11:16] LABS: Bilirubin Total* 0.6 mg/dL (0.1-1.5); Creatinine* 0.8 mg/dL (0.5-1.5); Est. Creatinine Clearance* 121.76; Estimated Glomerular Filt Rate 103 ml/min
[2023-01-14 11:17] LABS: Alanine Aminotransferase* 32 U/L (4-50); Alkaline Phosphatase* 68 U/L (40-150); Aspartate Amino Transferase* 29 U/L (12-35); Blood Urea Nitrogen* 16 mg/dL (7-30); Carbon Dioxide* 24 mmol/L (20-32); Glucose* 103 mg/dL (60-115); Total Protein* 8.8 g/dL (6.0-8.3)
[2023-01-14 11:19] LABS: C Reactive Protein* 0.6 mg/dL (0.5-1.0)
[2023-01-14 11:23] LABS: D Dimer Quantitative* 5.91 ug/ml (0.00-0.50)
[2023-01-14 11:26] LABS: NT Pro B Type NatriureticPept* 45 pg/mL
[2023-01-14 11:27] VITALS: O2SAT 97
--- NOTE | 2023-01-14 11:52 | CRLHL7_ITS ---
For Patients: As a result of the Century Cures Act, medical imaging exams and procedure reports are released immediately into your electronic medical record. You may view this report before your referring provider. If you have questions, please contact your health care provider. INDICATION: Shortness of breath. TECHNIQUE: CT chest PE was acquired with 95 cc Isovue 370 IV contrast. COMPARISON: 08/23/2022. FINDINGS: Heart and vasculature: Contrast opacification of the pulmonary arterial tree is adequate. No sign of pulmonary embolism. Heart size is normal. Thoracic aorta and pulmonary artery are normal in caliber. Lungs and pleura: No suspicious nodules or infiltrates. There is mild diffuse thickening of large airways. No pleural effusions, pleural thickening, or pneumothorax. Lymph nodes/mediastinum: No mediastinal, hilar, or axillary adenopathy. There is a small amount of fluid within the distal esophagus Chest wall: No masses. Upper abdomen: Left renal parapelvic cysts. Bones: Unremarkable for age. IMPRESSION: 1. Negative for pulmonary embolism. 2. Mild diffuse large airways thickening. Please note that all CT scans at this facility use dose modulation, iterative reconstruction, and/or weight-based dosing when appropriate to reduce radiation dose to as low as reasonably achievable. Dictated by Mg Castro MD @ 01/14/2023 2:09:52 PM (Electronically Signed)
[2023-01-14 12:38] VITALS: BP 123/80; PULSE 77; RESP 20; TEMP 36.4; O2SAT 99
--- NOTE | 2023-01-14 14:07 | ED.NURSE ---
patient denies chest pain and have a repeat ED POC trop running now.
[2023-01-14 14:17] LABS: Troponin, Point-of-Care* 0.02 ng/ml (0.01-0.04)
[2023-01-14 14:30] VITALS: BP 115/72; PULSE 69; RESP 20; TEMP 36.8; O2SAT 98
== END 2023-01-14 15:14 | disposition home or self-care (01) ==
PROVIDERS: Emergency Provider Family Medicine; PCP Family Medicine
DX: R07.9 Chest pain, unspecified (principal); J06.9 Acute upper respiratory infection, unspecified
CPT/HCPCS: 36415; 71045; 71260; 80053; 83605; 83880; 84484; 85025; 85379; 86140; 93005; 94761; 99284; 99285; Q9967

== ENCOUNTER 2023-02-06 10:32 | Emergency (ER) | payer OTHER, SELFPAY ==
[2023-02-06] VITALS (38 sets, daily range): BP systolic 102–126; BP diastolic 66–90; PULSE 90–105; RESP 18; TEMP 36.6; O2SAT 93–100
--- NOTE | 2023-02-06 11:17 | CRLHL7_ITS ---
For Patients: As a result of the Century Cures Act, medical imaging exams and procedure reports are released immediately into your electronic medical record. You may view this report before your referring provider. If you have questions, please contact your health care provider. INDICATION: CHEST PAIN TECHNIQUE: Chest 2 views. COMPARISON: 01/14/23 FINDINGS: Cardiovascular and mediastinum: Heart size and vasculature are normal in caliber and appearance. Mediastinum is within normal limits. Lungs and pleural spaces: Lungs are clear. No sign of infiltrate or mass. No sign of pleural effusion. No pneumothorax. Bones and soft tissues: No significant findings. IMPRESSION: Unremarkable chest. Dictated by: Nikhil Mercado MD @ 02/06/2023 12:22:15 (Electronically Signed)
--- NOTE | 2023-02-06 11:25 | ED_ITS ---
HPI - General Adult General Time Seen by Provider: 11:25 Date Seen: 02/06/23 Chief complaint: Chest Pain Stated complaint: chest pain Time Seen by Provider: 02/06/23 11:02 Source: patient Mode of arrival: ambulatory Limitations: no limitations History of Present Illness HPI narrative: Patient is a 57-year-old male with a history of myocarditis presenting to the emergency department for chest pain. Says the chest pain started over the weekend. Use initially is left precordial region and is now on the right lower portion of his chest. Says it hurts when he takes deep breath. Describes it as a pressure sensation. Denies any tenderness to palpation. Patient states the symptoms seem to be getting better since the weekend but he has had this happened to him multiple times. The 1st time was back in August of this year when he into the having myocarditis. He also states he was in our hospital in the end of December for similar symptoms and was discharged home. At that time he was checked for pulmonary embolism and was negative. He also spoke to his supervising bailiff he states he does not need a stress test for the symptoms. Patient states his previous cardiac catheterization in August 23 for the 1st immediately symptoms showed no concerning signs and no stents or every needed. He has never had heart issues before the myocarditis. Patient does state that they recently got back from [place] 2 weeks ago and when they return his is having URI symptoms. He states he never had any symptoms other than some mild congestion that has resolved. Denies shortness of breath, weakness, numbness, abdominal pain, diarrhea, constipation, vision changes. Related Data Home Medications Medication Instructions Recorded Confirmed pantoprazole 20 mg tablet,delayed 20 mg PO Q12H 08/23/22 02/06/23 release Allergies Allergy/AdvReac Type Severity Reaction Status Date / Time No Known Drug Allergies Allergy Verified 02/06/23 13:57 Review of Systems Status of ROS: Reports: 10 or more systems reviewed and unremarkable except as noted in History and below PFS PFS Medical History Prostate cancer ?C61 - Malignant neoplasm of prostate (ICD-10) GERD (gastroesophageal reflux disease) ?K21.9 - Gastro-esophageal reflux disease without esophagitis (ICD-10) Social History Smoking Status: Never smoker How often do you have a drink containing alcohol: 2-4 times a month How many standard drinks containing alcohol do you have on a typical day: 3 or 4 How often do you have six or more drinks on one occasion: Less than monthly AUDIT-C Alcohol total score: 4 Non-prescribed substance use: denies use service: No Exam Narrative: Exam Narrative: Const: Well-nourished, Well-developed, in mild distress Eyes: PERRL, no conjunctival injection, and symmetrical lids ENMT: Atraumatic external nose and ears. Moist mucous membranes. Neck: Symmetric, trachea midline, No thyromegaly. CVS: RRR, No murmurs or gallops. Peripheral pulses 2+ and equal in all extremities RESP: Unlabored respiratory effort. Clear to auscultation bilaterally. GI: Nontender/Nondistended, No rebound or guarding. MSK:Extremities w/o deformity, Normal Active ROM Skin: Warm, Dry. No rashes or lesions. Neuro: Normal Muscle tone, No focal neurological deficits. Psych: Awake, Alert, & Oriented x3. Appropriate mood and affect. Const: Vital Signs, click to edit/add: Vital Signs - 24 hr 02/06/23 10:41 02/06/23 11:21 02/06/23 11:22 Temperature 97.8 F Pulse Rate 105 H 101 H Pulse Rate [Right Pulse Oximeter] 105 H Respiratory Rate 18 Blood Pressure 108/76 Blood Pressure [Ri ght Upper Arm] 102/69 Pulse Oximetry 95 93 93 Oxygen Delivery Me thod Room Air 02/06/23 11:30 02/06/23 11:31 02/06/23 11:45 Temperature Pulse Rate 100 100 99 Pulse Rate [Right Pulse Oximeter] Respiratory Rate Blood Pressure 119/82 Blood Pressure [Ri ght Upper Arm] Pulse Oximetry 95 94 95 Oxygen Delivery Me thod 02/06/23 11:47 02/06/23 12:13 02/06/23 12:15 Temperature Pulse Rate 93 95 Pulse Rate [Right Pulse Oximeter] Respiratory Rate Blood Pressure 120/80 Blood Pressure [Ri ght Upper Arm] Pulse Oximetry 96 96 Oxygen Delivery Me thod 02/06/23 12:17 02/06/23 12:30 02/06/23 12:31 Temperature Pulse Rate 95 96 97 Pulse Rate [Right Pulse Oximeter] Respiratory Rate Blood Pressure 117/82 119/81 Blood Pressure [Ri ght Upper Arm] Pulse Oximetry 95 96 97 Oxygen Delivery Me thod 02/06/23 12:45 02/06/23 12:47 02/06/23 12:48 Temperature Pulse Rate 91 97 93 Pulse Rate [Right Pulse Oximeter] Respiratory Rate Blood Pressure 118/81 Blood Pressure [Ri ght Upper Arm] Pulse Oximetry 96 95 97 Oxygen Delivery Me thod 02/06/23 13:00 02/06/23 13:02 02/06/23 13:15 Temperature Pulse Rate 100 97 96 Pulse Rate [Right Pulse Oximeter] Respiratory Rate Blood Pressure 122/77 Blood Pressure [Ri ght Upper Arm] Pulse Oximetry 99 99 95 Oxygen Delivery Me thod 02/06/23 13:17 02/06/23 13:30 02/06/23 13:32 Temperature Pulse Rate 93 96 96 Pulse Rate [Right Pulse Oximeter] Respiratory Rate Blood Pressure 117/78 117/80 Blood Pressure [Ri ght Upper Arm] Pulse Oximetry 95 96 99 Oxygen Delivery Me thod 02/06/23 13:45 02/06/23 13:47 02/06/23 14:00 Temperature Pulse Rate 96 96 93 Pulse Rate [Right Pulse Oximeter] Respiratory Rate Blood Pressure 121/84 Blood Pressure [Ri ght Upper Arm] Pulse Oximetry 97 98 98 Oxygen Delivery Me thod 02/06/23 14:02 02/06/23 14:03 02/06/23 14:15 Temperature Pulse Rate 95 95 94 Pulse Rate [Right Pulse Oximeter] Respiratory Rate Blood Pressure 126/90 H Blood Pressure [Ri ght Upper Arm] Pulse Oximetry 100 99 97 Oxygen Delivery Me thod 02/06/23 14:17 02/06/23 14:30 02/06/23 14:32 Temperature Pulse Rate 93 92 93 Pulse Rate [Right Pulse Oximeter] Respiratory Rate Blood Pressure 121/82 122/87 Blood Pressure [Ri ght Upper Arm] Pulse Oximetry 97 98 97 Oxygen Delivery Me thod 02/06/23 14:45 02/06/23 14:47 02/06/23 15:00 Temperature Pulse Rate 91 92 94 Pulse Rate [Right Pulse Oximeter] Respiratory Rate Blood Pressure 124/83 Blood Pressure [Ri ght Upper Arm] Pulse Oximetry 98 98 97 Oxygen Delivery Me thod 02/06/23 15:02 02/06/23 15:15 02/06/23 15:17 Temperature Pulse Rate 91 90 91 Pulse Rate [Right Pulse Oximeter] Respiratory Rate Blood Pressure 125/84 126/84 Blood Pressure [Ri ght Upper Arm] Pulse Oximetry 98 97 97 Oxygen Delivery Me thod 02/06/23 15:18 02/06/23 15:30 Temperature Pulse Rate 90 Pulse Rate [Right Pulse Oximeter] Respiratory Rate Blood Pressure 110/66 Blood Pressure [Ri ght Upper Arm] Pulse Oximetry 97 Oxygen Delivery Me thod Course Vital Signs Vital signs: Initial Vital Signs Temperature 97.8 F 02/06/23 10:41 Temperature Source Temporal Artery Scan 02/06/23 10:41 Pulse Rate 105 H 02/06/23 10:41 Respiratory Rate 18 02/06/23 10:41 Blood Pressure 102/69 02/06/23 10:41 Blood Pressure Mean 80 02/06/23 10:41 Blood Pressure Position Sitting 02/06/23 10:41 Pulse Oximetry 95 02/06/23 10:41 Oxygen Delivery Method Room Air 02/06/23 10:41 Vital Signs Temperature 97.8 F 02/06/23 10:41 Pulse Rate 105 H 02/06/23 10:41 Respiratory Rate 18 02/06/23 10:41 Blood Pressure 102/69 02/06/23 10:41 Pulse Oximetry 95 02/06/23 10:41 Oxygen Delivery Method Room Air 02/06/23 10:41 Temperature 97.8 F 02/06/23 10:41 Pulse Rate 90 02/06/23 15:18 Respiratory Rate 18 02/06/23 10:41 Blood Pressure 110/66 02/06/23 15:30 Pulse Oximetry 97 02/06/23 15:18 Oxygen Delivery Method Room Air 02/06/23 10:41 Medical Decision Making MDM Narrative Medical decision making narrative: Patient is a 57-year-old male presents emergency department for chest pain. Chest pain has been going on for the past 4 5 days but has been slightly improving. Has been moving from his left side of his chest to the right side of his chest. He has had the symptoms in the past. For similar have recurred he had myocarditis. And that was earlier in August of this year. He heart catheterization at that time showing no coronary disease. He has symptoms again in December and was seen and discharged from the emergency department. His supervising bailiff does not believe he needs a stress test according to the patient and his . Patient does state his of upper respiratory symptoms a couple weeks ago with his knee symptoms with congestion. CBC, CMP, troponin, EKG, chest x-ray, D-dimer ordered. He did have a large blood clot in his right arm in August when he had myocarditis. EKG shows no concerning abnormalities. The inverted T-waves in the III is similar to his previous EKG. Chest x-ray shows no acute concerning abnormalities. CBC, CMP and troponin showed no concerning abnormalities. His D-dimer is 5.7. All 3 instances he has been emergency department at [facility] he has had D-dimers in the mid 5 range. I am unsure why there this high. He has had 2- CTA is already. We will do another CT at this time to rule a blood clot since the symptoms do seem consistent with 1. Lab Data Labs: Lab Results 02/06/23 02/06/23 Range/Units 11:39 11:46 WBC 8.31 (4.50-11.00) K/uL RBC 5.45 (4.30-5.90) m/uL Hgb 15.3 (13.5-17.5) gm/dL Hct 45.1 (37.0-53.0) % MCV 83 (80-100) fL MCH 28 (26-34) pg MCHC 34 (32-36) gm/dL RDW Coeff of Maxine 12.2 (11.5-15.5) % Plt Count 187 (140-440) K/uL Neut % (Auto) 78.3 H (42.0-72.0) % Lymph % (Auto) 12.3 L (20-44) % Barren % (Auto) 8.5 (0.0-11.0) % Eos % (Auto) 0.8 (0.0-7.0) % Baso % (Auto) 0.0 (0.0-3.0) % Neut # (Auto) 6.50 (1.7-7.0) K/uL Lymph # (Auto) 1.00 (0.90-2.90) K/uL Barren # (Auto) 0.70 (0.00-0.90) K/UL Eos # (Auto) 0.07 (0.00-0.50) K/uL Baso # (Auto) 0.00 (0.00-0.30) K/uL Abs Immat Gran (auto) 0.01 (0.00-0.30) K/uL Imm/Tot Granulo (auto) 0.1 % D-Dimer Quant (PE/DVT) 5.75 H (0.00-0.50) ug/ml Sodium 134 L (135-149) mmol/L Potassium 3.8 (3.6-5.1) mmol/L Chloride 101 (96-114) mmol/L Carbon Dioxide 25 (20-32) mmol/L BUN 13 (7-30) mg/dL Creatinine 0.8 (0.5-1.5) mg/dL Estimated Creat Clear 121.76 Estimated GFR 103 ml/min Glucose 118 H (60-115) mg/dL Calcium 9.1 (8.4-10.6) mg/dL Total Bilirubin 1.0 (0.1-1.5) mg/dL AST 29 (12-35) U/L ALT 37 (4-50) U/L Alkaline Phosphatase 62 (40-150) U/L Troponin I < 0.01 L (0.01-0.04) ng/mL Total Protein 8.9 H (6.0-8.3) g/dL Albumin 4.3 (3.3-5.0) g/dL Lab Acknowledgement Test Added Discharge Plan Discharge Clinical Impression: Atypical chest pain Patient Disposition: Home, Self-Care Condition: Stable Instructions: Noncardiac Chest Pain (ED) Additional Instructions: Follow-up with the primary care provider about your chronically elevated D-dimer formalin has been this high since August. further workup with them might help you determine what is causing this chest pain. Return to emergency department for new or worsening symptoms Prescriptions: No Action pantoprazole 20 mg tablet,delayed release (DR/EC) 20 mg PO Q12H Patient Comments: TAKE 1 TABLET BY MOUTH THREE TIMES DAILY BEFORE MEAL(S) Follow Up/Referrals: Osmin Abreu MD [Primary Care Provider] - Stand Alone Forms: in[employer] Info Instructions
[2023-02-06 11:54] LABS: Eosinophils Absolute Auto 0.07 K/uL (0.00-0.50); Eosinophils Percent Auto 0.8 % (0.0-7.0); Hematocrit 45.1 % (37.0-53.0); Hemoglobin* 15.3 gm/dL (13.5-17.5); Immature Granulocytes Abs Auto 0.01 K/uL (0.00-0.30); Immature Granulocytes Pct Auto 0.1 %; Lymphocytes Percent Auto 12.3 % (20-44); Mean Corpuscular HGB Conc 34 gm/dL (32-36); Mean Corpuscular Hemoglobin 28 pg (26-34); Mean Corpuscular Volume 83 fL (80-100); Monocytes Percent Auto 8.5 % (0.0-11.0); Neutrophils Percent Auto 78.3 % (42.0-72.0); Platelet Count* 187 K/uL (140-440); RDW Coefficient of Variation % 12.2 % (11.5-15.5); Red Blood Count 5.45 m/uL (4.30-5.90); White Blood Count* 8.31 K/uL (4.50-11.00)
[2023-02-06 12:01] LABS: Slide Review Reflex No
[2023-02-06 12:36] LABS: Albumin* 4.3 g/dL (3.3-5.0); Chloride* 101 mmol/L (96-114); D Dimer Quantitative* 5.75 ug/ml (0.00-0.50); Potassium* 3.8 mmol/L (3.6-5.1); Sodium* 134 mmol/L (135-149)
[2023-02-06 12:38] LABS: Creatinine* 0.8 mg/dL (0.5-1.5); Est. Creatinine Clearance* 121.76; Estimated Glomerular Filt Rate 103 ml/min
[2023-02-06 12:39] LABS: Alanine Aminotransferase* 37 U/L (4-50); Alkaline Phosphatase* 62 U/L (40-150); Aspartate Amino Transferase* 29 U/L (12-35); Blood Urea Nitrogen* 13 mg/dL (7-30); Carbon Dioxide* 25 mmol/L (20-32); Glucose* 118 mg/dL (60-115); Total Protein* 8.9 g/dL (6.0-8.3)
[2023-02-06 12:40] LABS: Calcium* 9.1 mg/dL (8.4-10.6)
[2023-02-06 12:52] LABS: Troponin I* < 0.01 ng/mL (0.01-0.04)
--- NOTE | 2023-02-06 12:55 | CRLHL7_ITS ---
For Patients: As a result of the Century Cures Act, medical imaging exams and procedure reports are released immediately into your electronic medical record. You may view this report before your referring provider. If you have questions, please contact your health care provider. INDICATION: Pain COMPARISON: January 14, 2023 TECHNIQUE: : CT examination of the chest was performed with the uneventful intravenous administration of 95 cc of Isovue 370 while thin axial sections were obtained from above the apices of the lungs to the lung bases. Please note that all CT scans at this facility use dose modulation, iterative reconstruction, and/or weight-based dosing when appropriate to reduce radiation dose to as low as reasonably achievable. FINDINGS: : HEART and MEDIASTINUM: Heart size normal. Small pericardial effusion. Mildly prominent mediastinal lymph nodes similar to the prior study. Hiatal hernia with esophageal thickening probably due to chronic reflux associated disease. PULMONARY ARTERIAL CIRCULATION: There is no visible intraluminal filling defect to suggest pulmonary embolus. LUNGS: The lungs show no focal consolidation or mass. Minimal basilar atelectasis the airways appear normal. PLEURAL SPACES: There is no pleural effusion, pneumothorax or pleural based mass. VISUALIZED UPPER ABDOMEN: Hepatic steatosis. Incidental left peripelvic sinus lymphatics cysts. OSSEOUS STRUCTURES: Age-appropriate appearance. No acute fracture or destructive process. TUBES and LINES: None. IMPRESSION: 1. There is no indication of acute pulmonary embolus. 2. Aside from trace basilar atelectasis, the lungs and pleural spaces appear normal. 3. Small pericardial effusion. Mildly prominent mediastinal lymph nodes. Hiatal hernia with evidence of reflux. These findings are similar to the prior exam. 4. Hepatic steatosis. Please note that all CT scans at this facility use dose modulation, iterative reconstruction, and/or weight-based dosing when appropriate to reduce radiation dose to as low as reasonably achievable. Dictated by Jamin Price MD @ 02/06/2023 3:13:59 PM (Electronically Signed)
== END 2023-02-06 15:38 | disposition home or self-care (01) ==
PROVIDERS: Emergency Provider Student in an Organized Health Care Education/Training Program; PCP Family Medicine
DX: R07.9 Chest pain, unspecified (principal)
CPT/HCPCS: 36415; 71046; 71260; 80053; 84484; 85025; 85379; 93005; 99283; 99284; 99285; Q9967

== ENCOUNTER 2024-02-27 10:05 | Day surgery (SDC) | payer OTHER, SELFPAY ==
--- OUTSIDE RECORDS SUMMARY | 2024-02-27 10:10 | XMS_ITS | Clinical Summary ---
Author Organization [facility] Address [address] [place] [id number] Care Team Providers Care Boat Garnisher Name Role Phone Robby Gardner Primary Care Provider [phone] Allergies No known active allergies Medications Medication Sig Dispensed Refills Start Date End Date Status clobetasol (TEMOVATE) 0.05 % cream Apply topically 2 times daily as needed Active multivitamin, therapeutic with minerals (MULTI-VITAMIN) TABS tablet Take 1 tablet by mouth daily Active RANITIDINE HCL PO Take 150 mg by mouth 2 times daily Active Multiple Vitamins-Minerals (ENERGY BOOSTER PO) Take 1 tablet by mouth 2 times daily (GNC) AM and NOON Active oxyCODONE-acetamino phen (PERCOCET) 5-325 MG per tabletIndications:C A of prostate (H) Take 1 tablet by mouth every 6 hours as needed for other (pain control or improvement in physical function. Hold dose for analgesic side effects.) 20 tablet 08/21/2017 Active Active Problems Problem Noted Date Diagnosed Date CA of prostate 08/20/2017 Immunizations Name Administration Dates Next Due Tdap (Adult) Unspecified Formulation 08/27/2011 Social History Tobacco Use Types Packs/Day Years Used Date Smoking Tobacco: Former Smokeless Tobacco: Never Alcohol Use Standard Drinks/Week Comments Yes 0 (1 standard drink = 0.6 oz pur e alcohol) occasionall Adolescent Education Answer Date Record ed Getting School Help Needed Not on file 04/19 Sex and Gender Information Value Date Recorded Sex Assigned at Not on file Gender Identity Not on file Sexual Orientation Not on file Last Filed Vital Signs Vital Sign Reading Time Taken Comments Blood Pressure 106/64 08/22/2017 12:16 PM PIE DOUGH ROLLER Pulse 84 08/21/2017 11:46 PM [employer] Temperature 37.1 ??C (98.7 ??F) 08/22/2017 12:[address] Respiratory Rate 16 08/22/2017 12:16 PM [employer] D[employer] ROLLER Oxygen Saturation 94% 08/22/2017 12:16 PM [employer] Inhaled Oxygen Concentration - - Weight 96.7 kg (213 lb 3.2 oz) 08/22/2017 5:00 A M [employer] D[employer] ROLL[employer] Height 190.5 cm (6' 3) 08/20/2017 9:49 AM [employer] ROLLER Body Mass Index 26.65 08/20/2017 9:49 AM [employer] RO[employer]ER Plan of Treatment Health Maintenance Due Date Last Done Comments ADVANCE CARE PLANNING 1965 ANNUAL REVIEW OF HM ORDERS 1965 CT COLONOGRAPHY 1965 FIT 1965 FLEX SIG 1965 sDNA (Cologuard) 1965 COLONOSCOPY 10/06/1975 COLORECTAL CANCER SCREENING 10/06/1975 HIV SCREENING 1980 HEPATITIS C SCREENING 10/06/1983 HEPATITIS B IMMUNIZATION (1 of 3 - 19+ 3-dose series) 1984 LIPID 2005 LUNG CANCER SCREENING 10/06/2015 ZOSTER IMMUNIZATION (1 of 2) 10/06/2015 GLUCOSE 08/22/2020 08/22/2017, 08/21/2017 YEARLY PREVENTIVE VISIT 03/09/2021 03/09/2020 COVID-19 Vaccine ( season) 2023 05/09/2021 PHQ-2 (once per calendar year) 2023 INFLUENZA VACCINE (#1) 2024 DTAP/TDAP/TD IMMUNIZATION (4 - Td or Tdap) 02/11/2031 02/11/2021, 08/27/2011, 08/27/2011, Additional history exists HPV IMMUNIZATION Aged Out No longer e ligible based on patient's age to complete this topic IPV IMMUNIZATION Aged Out No longer e ligible based on patient's age to complete this topic MENINGITIS IMMUNIZATION Aged Out No l onger eligible based on patient's age to complete this topic Pneumococcal Vaccine: Pediatrics (0 to 5 Years) and At-Risk Patients (6 to 64 Years) Aged Out No longer eligible based on patient's age to complete this topic RSV MONOCLONAL ANTIBODY Aged Out No l onger eligible based on patient's age to complete this topic Procedures Procedure Name Priority Date/Time Associated Diagnosis Comments GLUCOSE BY METER Routine 08/22/2017 5:52 AM [employer] DOUGH ROLLER CA of prostate (H) from Last 3 Months or Most Recently Relevant to Health Maintenance Results * (ABNORMAL) Glucose by meter (08/22/2017 5:52 AM P[employer] D[employer] ROLLER) Glucose 114(H) 70 - 99 mg/dL 08/22/2017 6:01 AM [employer] DOUGH ROLLER POINT OF CARE TEST, GLUCOSE 08/22/2017 5:52 AM P[employer] DOUGH ROLLER 08/22/2017 6:01 AM [employer] DOUGH ROLLER Luiz Michele MD [facility] POCT POINT OF CARE TEST, GLUCOSE from Last 3 Months or Most Recently Relevant to Health Maintenance Advance Directives For more information, please contact: [phone] * Full Code (Latest Code Status on File) Date Activated Date Inactivated Comments 08/21/2017 7:47 AM * Full Code Date Activated Date Inactivated Comments 08/20/2017 4:17 PM 08/21/2017 7:47 AM Care Teams Boat Garnisher Relationship Specialty Start Date End Date Robby Gardner [address] [place] [address] PCP - General Family Practice 08/09/17
--- OUTSIDE RECORDS SUMMARY | 2024-02-27 10:10 | XMS_ITS | Referral Summary ---
Author Organization [facility] Address [address] [place] [address] Care Team Providers Care Daily Sales Audit Clerk Name Role Phone Robby Gardner Primary Care Provider [phone] Allergies No known active allergies Medications Medication [...] Comments Blood Pressure 106/64 08/22/2017 12:16 PM EXPERIMENTAL BOX TESTER Pulse 84 08/21/2017 11:46 PM EXPERIMENTAL BOX TESTER Temperature 37.1 ??C (98.7 ??F) 08/22/2017 12:[address] Respiratory Rate 16 08/22/2017 12:16 PM EXPERIMENTAL BOX TESTER Oxygen Saturation 94% 08/22/2017 12:16 PM EXPERIMENTAL BOX TESTER Inhaled Oxygen Concentration - - Weight 96.7 kg (213 lb 3.2 oz) 08/22/2017 5:00 A M EXPERIMENTAL BOX TESTER Height 190.5 cm (6' 3) 08/20/2017 9:49 AM EXPERIMENTAL BOX TESTER Body Mass Index 26.65 08/20/2017 9:49 AM EXPERIMENTAL BOX TESTER Plan of Treatment Not on file Procedures Procedure Name Priority Date/Time Associated Diagnosis Comments GLUCOSE BY METER Routine 08/22/2017 5:52 AM EXPERIMENTAL BOX TESTER CA of prostate (H) from Last 3 Months or Most Recently Relevant to Health Maintenance Results * (ABNORMAL) Glucose by meter (08/22/2017 5:52 AM EXPERIMENTAL BOX TESTER) Glucose 114(H) 70 - 99 mg/dL 08/22/2017 6:01 AM EXPERIMENTAL BOX TESTER POINT OF CARE TEST, GLUCOSE 08/22/2017 5:52 AM EXPERIMENTAL BOX TESTER 08/22/2017 6:01 AM EXPERIMENTAL BOX TESTER Luiz Michele MD [facility] POCT POINT OF CARE TEST, GLUCOSE from Last 3 Months or Most Recently Relevant to Health Maintenance Advance Directives For more information, please contact: [phone] * Full Code (Latest Code Status on File) Date Activated Date Inactivated Comments 08/21/2017 7:47 AM * Full Code Date Activated Date Inactivated Comments 08/20/2017 4:17 PM 08/21/2017 7:47 AM Care Teams Daily Sales Audit Clerk Relationship Specialty Start Date End Date Robby Gardner [address] [place] [address] PCP - General Family Practice 08/09/17
--- OUTSIDE RECORDS SUMMARY | 2024-02-27 10:10 | XMS_ITS | Clinical Summary ---
Author Organization [facility] Address [place], [place] [address] Care Team Providers Care Continuous Linter Drier Operator Name Role Phone Osmin Abreu MD Primary Care Provider Allergies No known active allergies Medications Medication Sig Dispensed Refills Start Date End Date Status multivitamin (MVI) tablet Take 1 Tablet by mouth once daily. 0 01/20/2016 Active pantoprazole (PROTONIX) 20 mg tabletIndication s:Chronic GERD Take 1 Tablet (20 mg) by mouth two times daily before meals. 180 Tablet 3 09/18/2023 Active aspirin 325 mg tabletIndication s:CAD in [place] artery Take 1 Tablet (325 mg) by mouth once daily with a meal. 09/18/2023 Active clobetasol (TEMOVATE) 0.05 % creamIndications :Psoriasis Apply topically to affected area(s) two times daily. As needed for psoriasis. 60 g 1 02/12/2024 Active clobetasol cream 0.05% (TEMOVATE) 0.05 % cream Apply topically to affected area(s) 2 times daily if needed. 02/12/2024 Discontinued (Reorder (E-cancel not sent)) ipratropium-albu teroL (COMBIVENT RESPIMAT) (20-100 mcg each actuation) mist inhalerIndicatio ns:Bronchitis Inhale 1 Puff by mouth 4 times daily. 1 Each 10/11/2022 02/12/2024 Discontinued (*Med complete/Reg imen complete/Lev el of care change) Active Problems Problem Noted Date Diagnosed Date Chronic GERD 02/12/2024 Psoriasis 02/12/2024 Primary prostate adenocarcinoma 05/22/2017 Overview: [place] 3 + 4=7 Acute pericarditis 08/23/2022 Coronary artery disease, nonobstructive by CTA Resolved Problems Problem Noted Date Diagnosed Date Resolved Date D-dimer, elevated 02/10/2023 02/12/2024 Intermittent chest pain 02/10/202301/20 Pericarditis 08/28/2022 08/28/2022 Acute idiopathic pericarditis 08/25/2022 08/28/2022 Overview: Admitted 08/23/22 to [facility] Routine adult health maintenance 02/14/2016 11/07/2020 Overview: Colonoscopy 01/2016 polyp repeat in 10 years Gynecomastia, male 12/14/2015 Carpal tunnel syndrome, left 03/03/2015 02/12/2024 Paroxysmal atrial fibrillati on (HC) self-limited during pericarditis 08/202209/18/2023 Coronary artery disease 01/2023 Encounters Date Type Department Care Team Description 02/25/2024 Telephone [facility] [address] [place] [address] Terri Drake MD Questions (SURGERY PREP) 02/18/2024 3:15 PM CDT Office Visit [facility] [address] [place] [address] Terri Drake MD Consult (Left inguinal hernia) 02/18/2024 Travel 02/12/2024 8:25 AM CDT Office Visit [facility] [address] [place] [address] Osmin Abreu MD Follow Up (hernia) 02/12/2024 Travel from Last 3 Months Immunizations Name Administration Dates Next Due COVID-19 vaccine (Olvin-J&J) MIKAELA OROZCO DTaP 08/27/2011 Measles 05/07/1980 TD, UNSPECIFIED 08/27/2011 Tdap 02/11/2021,08/27/2011 Zoster (Shingrix-RZV, recombinant) 02/12/2024, Family History Medical History Relation Name Comments Heart Disease Father cabg 70's Hyperlipidemia Father Diabetes Maternal Grandfather Cancer-colon Maternal Grandmother Cancer-breast Mother with kane met s Anesthesia Problem No Family History Heart attack No Family History Relation Name Status Comments Brother Alive Father Alive Maternal Grandfather Maternal Grandmother Mother (Age 74) Sister 1 Alive Sister 2 Alive Social History Tobacco Use Types Packs/Day Years Used Date Smoking Tobacco: Never Smokeless Tobacco: Never Tobacco Cessation:Counseling Given: No Alcohol Use Standard Drinks/Week Comments Yes 1 (1 standard drink = 0.6 oz pur e alcohol) weekends PHQ-2 Answer Date Recorded PHQ-2 TOTAL SCORE 1 09/18/2023 Social Connections Answer Date Recorded Frequency of Communication with Friends and Fami ly Not on file 10/15/2023 Financial Resource Strain Answer Date R ecorded Difficulty of Paying Living Expenses 3 10/11/2022 Difficulty of Paying Living Expenses Not on file 10/11/2022 Food Insecurity Answer Date Recorded Worried About Running Out of Food in the Last Ye ar 1 10/11/2022 Transportation Needs Answer Date Record ed Lack of Transportation (Medical) 1 10/11/2022 Housing Stability Answer Date Recorded Unable to Pay for Housing in the Last Year 1 10/11/2022 Sex and Gender Information Value Date Recorded Sex Assigned at Not on file Gender Identity Not on file Sexual Orientation Not on file Obstetrics History Last Filed Vital Signs Vital Sign Reading Time Taken Comments Blood Pressure 114/74 02/18/2024 3:06 PM CDT Pulse 68 02/18/2024 3:06 PM CDT Temperature 36.1 ??C (97 ??F) 10/11/2022 7:57 AM CDT Respiratory Rate 18 08/26/2022 8:35 AM MULTIMEDIA INSTRUCTIONAL DESIGNER Oxygen Saturation 98% 02/18/2024 3:06 PM CDT Inhaled Oxygen Concentration - - Weight 111.5 kg (245 lb 14.4 oz) 02/18/2024 3:06 PM CDT Height 190.5 cm (6' 3) 09/18/2023 8:03 AM MULTIMEDIA INSTRUCTIONAL DESIGNER Body Mass Index 30.74 09/18/2023 8:03 AM MULTIMEDIA INSTRUCTIONAL DESIGNER Plan of Treatment Health Maintenance Due Date Last Done Comments COVID-19 vaccine series ( season) 2023 07/12/2021, 05/09/2021 Influenza for age 50-64 03/22/2024 BMI (ht and wt on same day) for age 18+ 09/18/2024 09/18/2023, 10/11/2022, 09/20/2022, Additional history exists Depression screening for age 12+ 09/18/2024 09/18/2023, 03/09/2020, 06/08/2019, Additional history exists Colonoscopy through age 75 02/13/202602/13, 02/14/2016, 02/14/2016 Lipids for age 45-75 09/18/2028 09/18/2023, 08/24/2022, 03/15/2020, Additional history exists Tetanus booster 02/11/2031 02/11/2021, 12/2011, 08/27/2011 Tdap Completed 02/11/2021, 08/27/2011 HIV for age 15-65 Completed 09/18/2023 Hepatitis C screening for age 18-79 Completed 09/18/2023 Zoster (shingles) series for age 50+ Completed 02/12/2024, 09/18/2023 Pneumococcal series for age 6-64 Aged Out No longer eligible based on patient's age to complete this topic Procedures Procedure Name Priority Date/Time Associated Diagnosis Comments ANTI HIV 1/2 Routine 09/18/2023 8:55 AM MULTIMEDIA INSTRUCTIONAL DESIGNER Encounter for screening for HIV ANTI HCV Routine 09/18/2023 8:55 AM MULTIMEDIA INSTRUCTIONAL DESIGNER Need for hepatitis C screening test LIPID PANEL W REFLEX MEASURED LDL Routine 09/18/2023 8:55 AM MULTIMEDIA INSTRUCTIONAL DESIGNER Dyslipidemia COLONOSCOPY 02/14/2016 7:39 AM CDT from Last 3 Months or Most Recently Relevant to Health Maintenance Results * LIPID PANEL W REFLEX MEASURED LDL (09/18/2023 8:55 AM MULTIMEDIA INSTRUCTIONAL DESIGNER) CHOLESTEROL,TOTAL 137 100 - 199 mg/dL 09/18/2023 6:16 PM MULTIMEDIA INSTRUCTIONAL DESIGNER [facility] Comment: Cholesterol, Total Reference Ranges Desirable <200 mg/dL Borderline 200-239 mg/dL High >=240 mg/dL TRIGLYCERIDES 35 <150 mg/dL 09/18/2023 6:16 PM MULTIMEDIA INSTRUCTIONAL DESIGNER [facility] HDL CHOLESTEROL 42 >40 mg/dL 6:16 PM MULTIMEDIA INSTRUCTIONAL DESIGNER [facility] NON-HDL CHOLESTEROL 95 <145 mg/dl 09/18/2023 6:16 PM MULTIMEDIA INSTRUCTIONAL DESIGNER [facility] CHOL/HDL RATIO 3.26 <4.50 09/18/2023 6:16 PM MULTIMEDIA INSTRUCTIONAL DESIGNER [facility] LDL CHOLESTEROL 88 <=130 mg/dL 09/18/2023 6:16 PM M[employer]IMEDIA INSTRUCTIONAL DESIGNER [facility] VLDL CHOLESTEROL 7 <=30 mg/dL 09/18/2023 6:16 PM MULTIMEDIA INSTRUCTIONAL DESIGNER [facility] PROVIDER ORDERED STATUS RANDOM 09/18/2023 6:16 PM M[employer]IM[employer]IA INSTRUCTIONAL DESIGNER [facility] Blood BLOOD SPECIMEN / Unknown Venipuncture / Unknown 09/18/2023 8:55 AM MULTIMEDIA INSTRUCTIONAL DESIGNER 09/18/2023 8:56 AM MULTIMEDIA INSTRUCTIONAL DESIGNER Osmin Abreu MD CHEMISTRY [facility] [address] [place] [id number], * ANTI HCV (09/18/2023 8:55 AM MULTIMEDIA INSTRUCTIONAL DESIGNER) HEPATITIS C ANTIBODY Non-Reacti ve Non-React bolivar 09/18/2023 5:37 PM MULTIMEDIA INSTRUCTIONAL DESIGNER [facility] Comment:Please note, per www .CDC.gov: If a patient is known to be at high risk of HCV infection, or is symptomatic, and the physician's suspicion of HCV infection is high, HCV RNA testing is often employed and is of diagnostic value, even after an initial negative anti-HCV test result. Blood BLOOD SPECIMEN / Unknown Venipuncture / Unknown 09/18/2023 8:55 AM MULTIMEDIA INSTRUCTIONAL DESIGNER 09/18/2023 8:56 AM MULTIMEDIA INSTRUCTIONAL DESIGNER Osmin Abreu MD SEND OUTS Performing Organization Address [facility]/ZIP Co de Phone Number [facility] [address] [place] [id number], [place] * ANTI HIV 1/2 (09/18/2023 8:55 AM MULTIMEDIA INSTRUCTIONAL DESIGNER) HIV-1/HIV-2 SCREEN Non-Reacti ve Non-Reacti ve 09/18/2023 6:50 PM MULTIMEDIA INSTRUCTIONAL DESIGNER [facility] Comment:HIV-1 p24 and HIV-1/ HIV-2 Ab Not Detected. Blood BLOOD SPECIMEN / Unknown Venipuncture / Unknown 09/18/2023 8:55 AM MULTIMEDIA INSTRUCTIONAL DESIGNER 09/18/2023 8:56 AM MULTIMEDIA INSTRUCTIONAL DESIGNER Osmin Abreu MD SEND OUTS Performing Organization Address City/[facility]/ZIP Co de Phone Number [facility] [address] [place] [id number], [place] * COLONOSCOPY (02/14/2016 7:39 AM CDT) 02/14/2016 7:39 AM CDT Narrative 02/14/2016 7:39 AM CDT Patient Name: Archie Lira ? Procedure Date: 02/14/2016 ? Gender: Male ? Date of : 1965 Admit Type: Outpatient ? Procedure: ?Colonoscopy Proceduralist: ?Samuel Espinoza MD Referring MD: ? Robby Gardner Indications/Pre-Op Diagnosis: Screening for colorectal malignant neoplasm, ?This is the patient's first colonoscopy Medications: ?Fentanyl 100 micrograms IV, Midazolam 4 mg IV, ?The level of sedation administered was moderate ? Procedure Description: ? The patient had risks, benefits and alternatives explained to and gave ? informed consent. The patient had a stable cardiopulmonary status and ? judged an adequate candidate for conscious sedation. ? The PCF-Q290AL [id number] was passed through the anus and advanced to the ? cecum, identified by appendiceal orifice and ileocecal valve. The ? colonoscopy was performed without difficulty. The patient tolerated the ? procedure well. The quality of the bowel preparation was excellent. The ? ileocecal valve, appendiceal orifice, and rectum were photographed. ? Complications: ?No immediate complications. Estimated Blood Loss & Specimen: ? Estimated blood loss: none. Specimen collected - None ? Findings: ? The perianal and digital rectal examinations were normal. ? The entire examined colon appeared normal on direct and retroflexion ? views. ? Impressions/Post-Op Diagnosis: ? - The entire examined colon is normal on direct and retroflexion views. ? - No specimens collected. ? Recommendation: ? - Patient has a contact number available for emergencies. The signs and ? symptoms of potential delayed complications were discussed with the ? patient. Return to normal activities tomorrow. Written discharge ? instructions were provided to the patient. ? - Resume previous diet. ? - Continue present medications. ? - Repeat colonoscopy in 10 years for screening purposes. ? Samuel Espinoza MD 02/14/2016 9:38:49 AM This report has been signed electronically. Note Initiated On: 02/14/2016 7:39 AM Procedure Code(s): ?--- Professional --- ?G0121, Colorectal cancer screening; colonoscopy ?on individual not meeting criteria for high risk Diagnosis Code(s): ?--- Professional --- ?Z12.11, Encounter for screening for malignant ?neoplasm of colon CPT copyright 2015 [employer]. All rights reserved. The codes documented in this report are preliminary and upon rn procedure review may be revised to meet current compliance requirements. Scope In: 9:12:40 AM Scope Withdrawal Time 0 hours 9 minutes 22 seconds Scope Out: 9:30:42 AM Procedure Note Samuel Espinoza MD - 02/14/2016 9:38 AM CDT Patient Name: Archie Lira Procedure Date: 02/14/2016 Gender: Male Date of : 1965 Admit Type: Outpatient Procedure: Colonoscopy Proceduralist: Samuel Espinoza MD Referring MD: Robby Gardner Indications/Pre-Op Diagnosis: Screening for colorectal malignant neoplasm, This is the patient's first colonoscopy Medications: Fentanyl 100 micrograms IV, Midazolam 4 mgIV, The level of sedation administered wasmoderate Procedure Description: The patient had risks, benefits and alternatives explained to andgave informed consent. The patient had a stable cardiopulmonary status and judged an adequate candidate for conscious sedation. The PCF-Q290AL [id number] was passed through the anus and advanced tothe cecum, identified by appendiceal orifice and ileocecal valve. The colonoscopy was performed without difficulty. The patient toleratedthe procedure well. The quality of the bowel preparation was excellent.The ileocecal valve, appendiceal orifice, and rectum were photographed. Complications: No immediate complications. Estimated Blood Loss & Specimen: Estimated blood loss: none. Specimen collected - None Findings: The perianal and digital rectal examinations were normal. The entire examined colon appeared normal on direct and retroflexion views. Impressions/Post-Op Diagnosis: - The entire examined colon is normal on direct and retroflexionviews. - No specimens collected. Recommendation: - Patient has a contact number available for emergencies. The signsand symptoms of potential delayed complications were discussed with the patient. Return to normal activities tomorrow. Written discharge instructions were provided to the patient. - Resume previous diet. - Continue present medications. - Repeat colonoscopy in 10 years for screening purposes. Samuel Espinoza MD 02/14/2016 9:38:49 AM This report has been signed electronically. Note Initiated On: 02/14/2016 7:39 AM Procedure Code(s): --- Professional --- G0121, Colorectal cancer screening;colonoscopy on individual not meeting criteria for highrisk Diagnosis Code(s): --- Professional --- Z12.11, Encounter for screening formalignant neoplasm of colon CPT copyright 2015 [employer]. All rights reserved. The codes documented in this report are preliminary and upon rn procedure reviewmay be revised to meet current compliance requirements. Scope In: 9:12:40 AM Scope Withdrawal Time 0 hours 9 minutes 22 seconds Scope Out: 9:30:42 AM Samuel Espinoza MD PROCEDURE ORD from Last 3 Months or Most Recently Relevant to Health Maintenance Advance Directives * Full Code (Latest Code Status on File) Date Activated Date Inactivated Comments 08/23/2022 9:18 PM 08/26/2022 3:56 PM Question Answer Comments Code Status Discussion: Reviewed Preferences * Full Code Date Activated Date Inactivated Comments 12/14/2015 7:29 AM 12/14/2015 12:20 PM * Full Code Date Activated Date Inactivated Comments 03/03/2015 1:57 PM 03/03/2015 7:10 PM * Full Code Date Activated Date Inactivated Comments 03/03/2015 10:50 AM 03/03/2015 1:57 PM * Full Code Date Activated Date Inactivated Comments 02/15/2014 10:47 AM 02/15/2014 3:21 PM Care Teams Continuous Linter Drier Operator Relationship Specialty Start Date End Date Osmin Abreu MD [address] [place] [address] PCP - General Family Practice 03/09/20
[2024-02-27] MEDS: LACTATED RINGERS 1000 ML 1,000 ML 100 ML IV ×2 (10:25→13:58)
[2024-02-27] MEDS: SODIUM CHLORIDE 0.9 % (FLUSH) 10 ML SYRINGE IVF (10:25)
[2024-02-27 10:31] VITALS: BP 111/70; PULSE 67; RESP 16; TEMP 36.6; O2SAT 98; BMI 30.3
--- NOTE | 2024-02-27 11:57 | W.ANESCHARGE ---
Anesthesia Charges Start Date/Time Anesthesia Start Date: 02/27/24 Anesthesia Start Time: 13:44 Stop Date/Time Anesthesia Stop Date: 02/27/24 Anesthesia Stop Time: 15:15
--- NOTE | 2024-02-27 13:40 | W.ANESCHARGE ---
Anesthesia Charges Start Date/Time Anesthesia Start Date: 02/27/24 Anesthesia Start Time: 13:44 Stop Date/Time Anesthesia Stop Date: 02/27/24 Anesthesia Stop Time: 15:15
[2024-02-27] MEDS: CEFAZOLIN 2 GM INJ IVP (13:55)
--- NOTE | 2024-02-27 13:56 | W.PM.H&PU ---
History & Physical Update History & Physical Update H&P Reviewed and patient assessed: No changes noted
--- NOTE | 2024-02-27 13:57 | PM.GSPRC ---
Operative Note Date of procedure: 02/27/24 Pre-op diagnosis: Left inguinal hernia Post-op diagnosis: Same Type of Procedure: Open repair of left inguinal hernia. Indications: The patient is a 50-year-old male who presented to clinic with a left inguinal hernia which had become increasingly symptomatic for him. After discussion, he elected to proceed with hernia repair. Procedure Description: After discussing the risks and benefits of the procedure, the patient signed informed consent.? The operative site was marked and the patient was brought to the operating room and placed on the operating table in supine position.? Care was taken to pad the patient's pressure points.?? The patient was then given sedation by anesthesia.?? The operative site was then prepped and draped in the usual sterile fashion.? A time-out was then performed. Local anesthetic was injected into the skin and subcutaneous tissue overlying the inguinal canal. An ilioinguinal nerve block was performed. An oblique incision was made over the external ring. Dissection was carried down into the subcutaneous tissue using cautery until the external oblique fascia was encountered. This was cleared off. The external ring was identified and after injection of more local anesthetic, the external oblique was incised using a knife. This was extended using the Metzenbaum scissors with care to dissect the underlying cord structures away from the fascia before cutting. The cord was cleared from the inside of the inguinal canal and looped with a [place] drain. An indirect inguinal hernia was identified. There was herniated preperitoneal fat noted with a small short broad-based hernia sac. The sac was dissected free of the cord structures and reduced in the abdomen. The preperitoneal fat was reduced and also partially excised. A piece of polypropylene mesh was obtained and cut to size. This was secured to the pubic tubercle using to 0 Prolene on a double-armed suture. The Prolene was run along the inguinal ligament inferiorly and along the transversalis fascia superiorly, securing the tails around the cord and re-creating the internal ring. The ring was just large enough to permit my fingertip. The wound was examined for hemostasis which was found to be adequate. The ileo inguinal nerve was identified and spared during the procedure. Care was taken to avoid entrapping this in the mesh closure. The external oblique fascia was then reapproximated with absorbable suture. The wound was then closed in layers including Marilu's fascia and the dermis with absorbable suture. The skin was then closed with a running subcuticular suture. Sterile dressings were applied. Instrument, sponge, and needle counts were correct at the end of the case. The patient was woken and taken to the PACU in stable condition. ? The patient tolerated the procedure well. Findings: Indirect left inguinal hernia. Anesthesia: MAC Surgeon: Terri Drake MD Estimated blood loss (mL): 5 Condition: stable Disposition: same day
[2024-02-27] MEDS: BUPIVACAINE 0.5% 30 ML INJECTION (14:14)
[2024-02-27] MEDS: LIDOCAINE 1 % PF 30 ML INJECTION (14:15)
[2024-02-27 15:10] VITALS: BP 136/88; PULSE 77; RESP 16; TEMP 36.4; O2SAT 97
[2024-02-27 15:15] VITALS: BP 149/96; PULSE 70; RESP 16; O2SAT 96
[2024-02-27 15:30] VITALS: BP 148/97; PULSE 64; RESP 16; O2SAT 96
[2024-02-27 15:45] VITALS: BP 139/89; PULSE 67; RESP 16; O2SAT 97
[2024-02-27] MEDS: HYDROCODONE-ACETAMIN 5-325 MG 1 TAB PO (15:45)
[2024-02-27] MEDS: METOCLOPRAMIDE HCL 5 MG/ML INJ 10 MG IVP (15:45)
[2024-02-27] MEDS: hydrOXYzine pamoate 25 MG CAPSULE PO (15:45)
== END 2024-02-27 16:04 | disposition home or self-care (01) ==
PROVIDERS: PCP Family Medicine; Visit Provider Surgery
PROC: (CPT 49505; principal; 2024-02-27 12:00)
DX: K40.90 Unilateral inguinal hernia, without obstruction or gangrene, not specified as recurrent (principal)
CPT/HCPCS: 49505; 00830; A9270; C1781; J0665; J0690; J1100; J2001; J2250; J2405; J2704; J2765; J3010; J3490; J7120

== ENCOUNTER 2024-03-01 14:25 | Outpatient (CLI) | payer OTHER, SELFPAY ==
--- OUTSIDE RECORDS SUMMARY | 2024-03-01 14:28 | XMS_ITS | Clinical Summary ---
Author Organization [facility] Address [place], [place] [address] Care Team Providers Care Oracle E Business Developer Name Role Phone Osmin Abreu MD Primary [...] Active aspirin 325 mg tabletIndication s:CAD in [place] artery Take 1 Tablet (325 mg) by [...] Psoriasis 02/12/2024 Primary prostate adenocarcinoma 05/22/2017 Overview: Kat 3 + 4=7 Acute pericarditis 08/23/2022 Coronary artery disease, nonobstructive by CTA Resolved Problems Problem Noted Date Diagnosed Date Resolved Date D-dimer, elevated 02/10/2023 02/12/2024 Intermittent chest pain 02/10/202301/20 Pericarditis 08/28/2022 08/28/2022 Acute idiopathic pericarditis 08/25/2022 08/28/2022 Overview: Admitted 08/23/22 to [facility] Routine adult health maintenance 02/14/2016 11/07/2020 Overview: Colonoscopy 01/2016 polyp repeat in 10 years Gynecomastia, male 12/14/2015 Carpal tunnel syndrome, left 03/03/2015 02/12/2024 Paroxysmal atrial fibrillati on (HC) self-limited during pericarditis 08/202209/18/2023 Coronary artery disease 01/2023 Encounters Date Type Department Care Team Description 02/27/2024 9:00 AM CDT Office Visit [facility] [address] [facility] [place] [id number] Terri Drake MD Arrived 02/27/2024 Orders Only [facility] Scanner 1 scan: (1-Ord) [facility] , OPEN REPAIR OF LT INGUINAL HERNIA, 02/27/2024 02/25/2024 Telephone [facility] [address] [place] [address] Terri Drake MD Questions (SURGERY PREP) 02/18/2024 3:15 PM CDT Office Visit [facility] [address] [place] [address] Terri Drake MD Consult (Left inguinal hernia) 02/18/2024 Travel 02/12/2024 8:25 AM CDT Office Visit [facility] [address] [place] [address] Osmin Abreu MD Follow Up (hernia) 02/12/2024 Travel from Last 3 Months Immunizations Name Administration Dates Next Due COVID-19 vaccine (Olvin-J&J) MD PAMV DTaP 08/27/2011 Measles 05/07/1980 TD, UNSPECIFIED 08/27/2011 [...] CDT Respiratory Rate 18 08/26/2022 8:35 AM NATURAL RESOURCE SPECIALIST Oxygen Saturation 98% 02/18/2024 3:06 PM CDT Inhaled Oxygen Concentration - - Weight 111.5 kg (245 lb 14.4 oz) 02/18/2024 3:06 PM CDT Height 190.5 cm (6' 3) 09/18/2023 8:03 AM NATURAL RESOURCE SPECIALIST Body Mass Index 30.74 09/18/2023 8:03 AM NATURAL RESOURCE SPECIALIST Plan of Treatment Upcoming Encounters Date Type Department Care Team (Late st Contact Info) Description 03/17/2024 1:15 PM CDT Office Visit [facility] [address] [place] [address] Terri Drake MD [address] [place] [address] Health Maintenance Due Date Last Done Comments [...] Procedure Name Priority Date/Time Associated Diagnosis Comments SCAN-OPERATIVE/PROCE DURE REPORT 02/27/2024 12:00 AM CDT ANTI HIV 1/2 Routine 09/18/2023 8:55 AM NATURAL RESOURCE SPECIALIST Encounter for screening for HIV ANTI HCV Routine 09/18/2023 8:55 AM NATURAL RESOURCE SPECIALIST Need for hepatitis C screening test LIPID PANEL W REFLEX MEASURED LDL Routine 09/18/2023 8:55 AM NATURAL RESOURCE SPECIALIST Dyslipidemia COLONOSCOPY 02/14/2016 7:39 AM CDT from Last 3 Months or Most Recently Relevant to Health Maintenance Results * SCAN-OPERATIVE/PROCEDURE REPORT (02/27/2024 12:00 AM CDT) Scanner OTHER * LIPID PANEL W REFLEX MEASURED LDL (09/18/2023 8:55 AM NATURAL RESOURCE SPECIALIST) CHOLESTEROL,TOTAL 137 100 - 199 mg/dL 09/18/2023 6:16 PM NATURAL RESOURCE SPECIALIST [employer] [place] [facility] Comment: Cholesterol, Total Reference Ranges Desirable <200 mg/dL Borderline 200-239 mg/dL High >=240 mg/dL TRIGLYCERIDES 35 <150 mg/dL 09/18/2023 6:16 PM NATURAL RESOURCE SPECIALIST [facility] HDL CHOLESTEROL 42 >40 mg/dL 6:16 PM NATURAL RESOURCE SPECIALIST [facility] NON-HDL CHOLESTEROL 95 <145 mg/dl 09/18/2023 6:16 PM NATURAL RESOURCE SPECIALIST [facility] CHOL/HDL RATIO 3.26 <4.50 09/18/2023 6:16 PM NATURAL RESOURCE SPECIALIST [facility] LDL CHOLESTEROL 88 <=130 mg/dL 09/18/2023 6:16 PM NATURAL RESOURCE SPECIALIST [facility] VLDL CHOLESTEROL 7 <=30 mg/dL 09/18/2023 6:16 PM NATURAL RESOURCE SPECIALIST [employer] [facility] PROVIDER ORDERED STATUS RANDOM 09/18/2023 6:16 PM NATURAL RESOURCE SPECIALIST [facility] Blood BLOOD SPECIMEN / Unknown Venipuncture / Unknown 09/18/2023 8:55 AM NATURAL RESOURCE SPECIALIST 09/18/2023 8:56 AM NATURAL RESOURCE SPECIALIST Osmin Abreu MD CHEMISTRY Performing Organization Address [facility] Co de Phone Number [facility] [address] [place] [address], [place] * ANTI HCV (09/18/2023 8:55 AM NATURAL RESOURCE SPECIALIST) HEPATITIS C ANTIBODY Non-Reacti ve Non-React bolivar 09/18/2023 5:37 PM NATURAL RESOURCE SPECIALIST [facility] Comment:Please note, per www .CDC.gov: If a patient is known to be at high risk of HCV infection, or is symptomatic, and the physician's suspicion of HCV infection is high, HCV RNA testing is often employed and is of diagnostic value, even after an initial negative anti-HCV test result. Blood BLOOD SPECIMEN / Unknown Venipuncture / Unknown 09/18/2023 8:55 AM NATURAL RESOURCE SPECIALIST 09/18/2023 8:56 AM NATURAL RESOURCE SPECIALIST Osmin Abreu MD SEND OUTS Performing Organization Address [facility] Co de Phone Number [facility] [address] [place], [place] [id number], [place] * ANTI HIV 1/2 (09/18/2023 8:55 AM NATURAL RESOURCE SPECIALIST) Pathologist [facility] HIV-1/HIV-2 SCREEN Non-Reacti ve Non-Reacti ve 09/18/2023 6:50 PM NATURAL RESOURCE SPECIALIST [facility] Comment:HIV-1 p24 and HIV-1/ HIV-2 Ab Not Detected. Blood BLOOD SPECIMEN / Unknown Venipuncture / Unknown 09/18/2023 8:55 AM NATURAL RESOURCE SPECIALIST 09/18/2023 8:56 AM NATURAL RESOURCE SPECIALIST Osmin Abreu MD SEND OUTS [facility] [address] [place] [address], * COLONOSCOPY (02/14/2016 7:39 AM CDT) 02/14/2016 7:39 AM CDT Narrative 02/14/2016 7:39 AM CDT Patient Name: Archie Lira ? Procedure Date: 02/14/2016 ? Gender: Male ? Date of : 1965 Admit Type: Outpatient ? Procedure: ?Colonoscopy Proceduralist: ?Samuel Espinoza MD Referring : ? Robby Gardner Indications/Pre-Op Diagnosis: Screening for [...] candidate for conscious sedation. ? The PCF-Q290AL [id number] was passed through the anus and advanced [...] malignant ?neoplasm of colon CPT copyright 2015 [employer]. All rights reserved. The codes documented in this report are preliminary and upon hcc coders review may be revised to meet current [...] an adequate candidate for conscious sedation. The [facility]-Q290AL [id number] was passed through the anus and advanced [...] formalignant neoplasm of colon CPT copyright 2015 [employer]. All rights reserved. The codes documented in this report are preliminary and upon hcc coders reviewmay be revised to meet current compliance [...] 10:47 AM 02/15/2014 3:21 PM Care Teams Oracle E Business Developer Relationship Specialty Start Date End Date Osmin Abreu MD [address] [place] [address] PCP - General Family Practice 03/09/20
--- OUTSIDE RECORDS SUMMARY | 2024-03-01 14:28 | XMS_ITS | Clinical Summary ---
Author Organization [facility] Address [address] [place] [address] Care Team Providers Care Dba Name Role Phone Robby Gardner Primary Care Provider [phone] Allergies No known active allergies Medications Medication [...] Comments Blood Pressure 106/64 08/22/2017 12:16 PM TOOL SMITH Pulse 84 08/21/2017 11:46 PM TOOL SMITH Temperature 37.1 ??C (98.7 ??F) 08/22/2017 12:[address] Respiratory Rate 16 08/22/2017 12:16 PM TOOL SMITH Oxygen Saturation 94% 08/22/2017 12:16 PM TOOL SMITH Inhaled Oxygen Concentration - - Weight 96.7 kg (213 lb 3.2 oz) 08/22/2017 5:00 A M TOOL SMITH Height 190.5 cm (6' 3) 08/20/2017 9:49 AM TOOL SMITH Body Mass Index 26.65 08/20/2017 9:49 AM TOOL SMITH Plan of Treatment Health Maintenance Due Date [...] GLUCOSE BY METER Routine 08/22/2017 5:52 AM TOOL SMITH CA of prostate (H) from Last 3 Months or Most Recently Relevant to Health Maintenance Results * (ABNORMAL) Glucose by meter (08/22/2017 5:52 AM TOOL SMITH) Glucose 114(H) 70 - 99 mg/dL 08/22/2017 6:01 AM TOOL SMITH POINT OF CARE TEST, GLUCOSE 08/22/2017 5:52 AM TOOL SMITH 08/22/2017 6:01 AM TOOL SMITH Luiz Michele MD [facility] PO[facility] POINT OF CARE TEST, GLUCOSE from Last 3 Months or Most Recently Relevant to Health Maintenance Advance Directives For more information, please contact: [phone] * Full Code (Latest Code Status on File) Date Activated Date Inactivated Comments 08/21/2017 7:47 AM * Full Code Date Activated Date Inactivated Comments 08/20/2017 4:17 PM 08/21/2017 7:47 AM Care Teams Dba Relationship Specialty Start Date End Date Robby Gardner [address] [place] [address] PCP - General Family Practice 08/09/17
--- OUTSIDE RECORDS SUMMARY | 2024-03-01 14:28 | XMS_ITS | Referral Summary ---
Author Organization [facility] Address [address] [place] [address] Care Team Providers Care Nurse Gynecology Name Role Phone Robby Gardner Primary Care Provider Allergies No known active [...] Comments Blood Pressure 106/64 08/22/2017 12:16 PM FRUIT PICKER Pulse 84 08/21/2017 11:46 PM FRUIT PICKER Temperature 37.1 ??C (98.7 ??F) 08/22/2017 12:[address] Respiratory Rate 16 08/22/2017 12:16 PM FRUIT PICKER Oxygen Saturation 94% 08/22/2017 12:16 PM FRUIT PICKER Inhaled Oxygen Concentration - - Weight 96.7 kg (213 lb 3.2 oz) 08/22/2017 5:00 A M FRUIT PICKER Height 190.5 cm (6' 3) 08/20/2017 9:49 AM FRUIT PICKER Body Mass Index 26.65 08/20/2017 9:49 AM FRUIT PICKER Plan of Treatment Not on file Procedures Procedure Name Priority Date/Time Associated Diagnosis Comments GLUCOSE BY METER Routine 08/22/2017 5:52 AM FRUIT PICKER CA of prostate (H) from Last 3 Months or Most Recently Relevant to Health Maintenance Results * (ABNORMAL) Glucose by meter (08/22/2017 5:52 AM FRUIT PICKER) Glucose 114(H) 70 - 99 mg/dL 08/22/2017 6:01 AM FRUIT PICKER POINT OF CARE TEST, GLUCOSE 08/22/2017 5:52 AM FRUIT PICKER 08/22/2017 6:01 AM FRUIT PICKER Luiz Michele MD [facility] POCT POINT OF CARE TEST, GLUCOSE from Last 3 Months or Most Recently Relevant to Health Maintenance Advance Directives For more information, please contact: [phone] * Full Code (Latest Code Status on File) Date Activated Date Inactivated Comments 08/21/2017 7:47 AM * Full Code Date Activated Date Inactivated Comments 08/20/2017 4:17 PM 08/21/2017 7:47 AM Care Teams Nurse Gynecology Relationship Specialty Start Date End Date Robby Gardner [address] [place] [address] PCP - General Family Practice 08/09/17
--- OUTSIDE RECORDS SUMMARY | 2024-03-01 14:28 | XMS_ITS | Data Portability ---
Author Organization [facility], [facility] Address [address] [place] [address] Care Team Providers Care Rag Room Supervisor Name Role Phone [facility] Primary Care Provider Assessment No assessment recorded. Plan of Treatment Reminders Order Date Submit Date Provider Last Modified By Organization Details Last Modified Time Details Appointments None recorded. Lab PSA, serum or plasma 2019 020 [email or web address] Not available 0 10:46:39 PSA, serum or plasma 2020 021 [email or web address] Not available 15:12:16 PSA, total, serum or plasma 2020 021 [email or web address] Not available 1 17:02:18 PSA, serum or plasma 2021 022 [email or web address] [facility], [address], [place], [address], 2 10:30:01 PSA, total, serum or plasma 2021 022 [email or web address] 30 [facility], [address], [place], [address], 2 08:53:20 PSA, serum or plasma 2022 023 [email or web address] 30 [facility], [address], [place], [address], 3 15:07:41 PSA, total, serum or plasma 2022 023 [email or web address] [facility], [address], [place], [address], 3 15:50:38 Referral general surgeon referral - Right breast lump, Dr. Terri Drake 2021 022 [email or web address] [facility], [address], [place], [address], 2 08:07:16 Procedures None recorded. Surgeries None recorded. Imaging None recorded. Medication Orders None recorded. Patient TargetsNo targets recorded. Patient Instructions Encounter Date Encounter Id Patient Instructions Last Modified By Organization Details Last Modified Time 05/11/2020 [id number] PSA is <0.04. Ellis s meds for penile inj. Has not used it much. F/up annually for PSA. [email or web address] Not available 05/13/2020 18:19:31 Reason for Referral General Surgeon Referral for Mass of right breast Right breast lump, Dr. Terri Drake Referring Physician: Rodolfo Samuels, Urology, Encounter Date: 05/21/2022 Results Created Date Observation Date Name Description Value Unit Range Abnormal Flag LastModifiedBy Organization Detail LastModifiedTime 05/11/2020 PSA, serum or plasm a PSA, Total 10.2 ng/Ml Not Available [facility] [address], [place], [address], 05/11/2020 10:46:21 06/07/20 21 06/07/2021 PSA, serum or plasm a PSA, Total <0.04n g/mL Not Available [facility] [address], [place], [address], 06/07/2021 15:11:28 05/21/20 22 05/21/2022 PSA, serum or plasm a PSA <0.04n g/mL 0-4.0 Not Available [facility] [address], [place], [address], 05/21/2022 10:29:50 07/08/20 23 07/08/2023 PSA, serum or plasm a PSA <0.04n g/mL 0-4.0 Not Available [facility] [address], [place], [address], 07/08/2023 14:54:46 Result Notes None recorded. Problems Name Status Onset Date Resolution Date Notes Provider Name and Address Organization Details Recorded Time Malignant tumor of prostate Active 05/23/20 17 C61 : Malignant neoplasm of prostate Not Available [facility] 01/07/2020 02:09:05 Problem Notes None recorded. Procedures Surgical History Date Name Laterality Status Provider Name and Address Organization Details Recorded Time 07/08/20 23 DAIRY HAND/blood draw completed Ashly nova [facility] 07/08/2023 14:54:42 07/08/20 23 Bladder Scan completed Amanda nova [facility] 07/08/2023 15:26:35 05/21/20 22 DAIRY HAND/blood draw completed Rodolfo Samuels MD [address] [place] [address],[address], [place], [address], [facility] 05/21/2022 10:29:34 06/07/20 21 Blood Draw/DAIRY HAND/PSA RESULTS completed Rodolfo Samuels MD [address] [place] [address],[address], [address], [facility] 06/07/2021 15:11:19 05/11/20 20 Blood Draw/DAIRY HAND/PSA RESULTS completed Montserrat nova [facility] 05/11/2020 10:46:17 12/21/19 19 colonoscopy completed Rodolfo Samuels MD [address] [place] [address],[address], [place], [address], [facility] 06/07/2021 15:10:49 Appendectomy completed Chelsi nova [facility] 05/11/2020 10:25:07 procedure on neck completed Chelsi nova [facility] 05/11/2020 10:25:16 Carpal tunnel surgery completed Chelsi nova [facility] 05/11/2020 10:25:38 Prostatectomy completed Chelsi Aida [facility] 05/11/2020 10:25:45 Imaging Results None recorded. Procedure Notes None recorded. Medical Equipment None Reported. Allergies No known drug allergies Medications Name Sig Start Date Stop Date Status Note LastModified by Organization Details LastModified Time celecoxib 200 mg capsule TAKE 1 CAPSULE BY MOUTH ONCE DAILY WITH A MEAL 07/08 completed Not Available Not Available Not Available atorvastati n 20 mg tablet TAKE 1 TABLET BY MOUTH ONCE DAILY AT BEDTIME 07/08 completed Not Available Not Available Not Available clobetasol 0.05 % topical cream 05/21 completed Not Available Not Available Not Available pantoprazol e 20 mg tablet,jose m yed release TAKE 1 TABLET BY MOUTH THREE TIMES DAILY BEFORE MEAL(S) active Not Available Not Available No t Available phentolamin e mesylate (bulk) powder 05/21 completed Not Available Not Available Not Available baclofen 10 mg tablet 06/07 completed Not Available Not Available Not Available benzonatate 100 mg capsule TAKE 1 TO 2 CAPSULES BY MOUTH THREE TIMES DAILY NEEDED FOR COUGH 05/21 completed Not Available Not Available Not Available pantoprazol e 40 mg tablet,jose m yed release 05/11 completed Not Available Not Available Not Available insulin syringe U-100 with needle 1 mL 28 gauge x 07/23 completed Not Available Not Available Not Available colchicine 0.6 mg tablet TAKE 1 TABLET BY MOUTH TWICE DAILY 07/08 completed Not Available Not Available Not Available Ventolin HFA 90 mcg/actuati on aerosol inhaler INHALE 1 TO 2 PUFFS BY MOUTH EVERY 4 HOURS NEEDED FOR SHORTNESS OF BREATH AND FOR COUGH 1ST CHOICE TREATMENT FOR BOTH SYMPTOMS 05/21 completed Not Available Not Available Not Available Alcohol Prep Pads 05/21 completed Not Available Not Available Not Available metoprolol tartrate 25 mg tablet TAKE 1 TABLET BY MOUTH TWICE DAILY 07/08 completed Not Available Not Available Not Available BD SafetyGlide Insulin Syringe 1 mL 29 gauge x 2 05/21 completed Not Available Not Available Not Available Combivent Respimat 20 mcg-100 mcg/actuati on solution for inhalation INHALE 1 PUFF BY MOUTH 4 TIMES DAILY 07/08 completed Not Available Not Available Not Available Vitals Date Recorded Body height Body mass index (BMI) Body weight Provider Name and Address Organization Details Last Updated DateTime 05/21/2022 190.5 cm 29.4 kg/m2 769304.21 g Rodolfo Samuels MD [address] [address] 05/21/2022 10:28:24 Date Recorded Body height Body mass index (BMI) Body weight Provider Name and Address Organization Details Last Updated DateTime 05/11/2020 190.5 cm 30 kg/m2 908211.17 g Chelsi Parra [facility] 05/11/2020 10:22:41 Date Recorded Body height Body mass index (BMI) Body weight Provider Name and Address Organization Details Last Updated DateTime 07/08/2023 190.5 cm 30 kg/m2 762082.[address] [facility] 07/08/2023 14:53:20 Date Recorded Body height Body mass index (BMI) Body weight Provider Name and Address Organization Details Last Updated DateTime 06/07/2021 190.5 cm 30.6 kg/m2 918650.13 brett Samuels MD [address], [place], [address] 06/07/2021 15:09:54 Social History Question Answer Notes LastModified by Organizat ion Details LastModified Time Tobacco Smoking Status Never Smoker Chelsi nova [facility] 05/11/2020 10:24:43 What Was The Date Of Your Most Recent Tobacco Screening? 07/08/2023 [email or web address] Information not available 07/08/2023 Do You Use Any Illicit Or Recreational Drugs? No [email or web address] Information not available 06/07/2021 Sex: Unknown Functional Status None recorded. Mental Status None recorded. Family History Relationship Description Onset Age of this Age Resolved Age Notes Mother Family history of breast cancer Mother Malignant neoplasm o f skin Maternal Grandmother Family history of cancer of colon Medical History Condition Response GERD/Acid Reflux Y Cancer Y Immunizations Vaccine Type Date Status Provider Name and Address Organization Details Recorded Time measles 05/07/1980 completed Ashly nova [facility] 07/08/2023 14:53:27 COVID-19, mRNA, LNP-S, PF, 30 mcg/0.3 mL dose 07/12/2021 completed Ashlyalverto Jimenez null, [facility] 07/08/2023 14:53:27 COVID-19 vaccine, vector-nr, rS-Ad26, PF, 0.5 mL 05/09/2021 completed Ashlyalverto Jimenez null, [facility] 07/08/2023 14:53:27 Tdap 08/27/2011 completed Ashly Lulúquist null, [facility] 07/08/2023 14:53:27 Tdap 02/11/2021 completed Ashly Lulúquist null, [facility] 07/08/2023 14:53:27 DTaP 08/27/2011 completed Ashly Jimenez null, [facility] 07/08/2023 14:53:27 Past Encounters Encounter ID Performer Location Encounter Start Date Encounter Closed Date Diagnosis/Indication Diagnosis SNOMED-CT Code [id number] Luiz Michele [facility] [address] [place] [address] 05/11/2020 10:00:12 05/16/2020 05:44:02 Malignant tumor of prostate [id number] [facility] [address] [place] [address] 06/07/2021 14:43:08 06/12/2021 10:03:15 Carcinoma of prostate 920291843 Malignant tumor of prostate 333850541 Erectile d ysfunction following radical prostatectomy [id number] [facility] [address] [place] [id number] 05/21/2022 09:34:46 05/24/2022 14:48:28 Carcinoma of prostate 128989380 Erectile d ysfunction following radical prostatectomy 756005915058819 Mass of right breast 122 [id number] [facility] [address] [place] [id number] 07/08/2023 14:34:30 07/09/2023 14:00:36 Carcinoma of prostate 620027186 Erectile d ysfunction following radical prostatectomy 938754546467016 Slowing of urinary stream [id number] Health Concerns Section Related Observation LastModified by Organization Detai ls LastModified Time None Recorded Concern Status LastModified by Organization Details LastModified Time None Recorded Advance Directives Directive None Recorded Payers Encounter Date Sequence Insurance Name Policy Number Policy Dill Covered Member ID Dill Member ID Guarantor Name 06/07/2021 1 [facility] [id number] Archie Lria [id number] Archie Lira 05/21/2022 1 [place] [id number] Lira [id number] Archie Lira 07/08/2023 1 [facility] [id number] Archie Lira [id number] Archie Lira Notes Date Note Type Note Provider Name and Address Organization Details Recorded Time 05/11/2020 text/html HPI Notes: SUHA LIRA is a 54 year old male. Continent. Pt has less LUTS. Has partial erections. HPI: Date of diagnosis: 05/23/17 Bx by: Dr Rodolfo Samuels PSA: ALBERTO: Nl Volume: 35 cc Pathology: Gl score 7. Gr 3/4 RLB; 3/3 RLA,RA,RM,RB Bone scan:NA Ct Scan: NA Urol issues: None IIEF : 19 . Notes ED post op is not a big issue AUA score: 21 Treatment: 08/20/17: RARP path: Gr 3/3 ( tertiary 4); p T2N0M0 ( focally pos margin). [place] - [facility] 05/13/2020 18:19:54 06/07/2021 text/html HPI Notes: 55 yo male with history of Prostate cancer - pT2 No Mx - Polaris 3+3 = 6 (tertiary 4) - s/p RAL prostatectomy (08/20/17) - (focally positive margin). + ED. 06/07/21 - He presents for follow-up on Prostate cancer. He voids every 2-3 hours and 1x/night. He reports occasional urgency with a rare episode of leakage. No spontaneous erects - uses penile injections with good results. - PSA - < 0.04 PSA - < 0.4 (05/11/20) - < 0.04 (06/07/21) Rodolfo Samuels MD [address] [place] [address],[address], [place], [address], [facility] 06/10/2021 19:01:21 05/21/2022 text/html HPI Notes: 56 yo male with history of Prostate cancer - pT2 No Mx - Polaris 3+3 = 6 (tertiary 4) - s/p RAL prostatectomy (08/20/17) - (focally positive margin). + ED. 06/07/21 - He presents for follow-up on Prostate cancer. He voids every 2-3 hours and 1x/night. He reports occasional urgency with a rare episode of leakage. No spontaneous erects - uses penile injections with good results. 05/21/22 He presents for follow-up on Prostate cancer. He reports no change in urination - rare leakage. ED - uses Trimix with good results. He noticed a lump at the bottom of his right breast about 1 month ago - no pain - has not changed size. - PSA - <0.04 PSA - < 0.4 (05/11/20) - < 0.04 (06/07/21) - <0.04 (05/21/22) Rodolfo Samuels MD [address] [place] [address],[address], [address], [facility] 05/21/2022 11:26:41 07/08/2023 text/html HPI Notes: 57 yo male with history of Prostate cancer - pT2 No Mx - Polaris 3+3 = 6 (tertiary 4) - s/p RAL prostatectomy (08/20/17) - (focally positive margin) + ED. 06/07/21 - He presents for follow-up on Prostate cancer. He voids every 2-3 hours and 1x/night. He reports occasional urgency with a rare episode of leakage. No spontaneous erects - uses penile injections with good results. 05/21/22 He presents for follow-up on Prostate cancer. He reports no change in urination - rare leakage. ED - uses Trimix with good results. He noticed a lump at the bottom of his right breast about 1 month ago - no pain - has not changed size. 07/08/23 - He presents for follow-up on Prostate cancer. He voids every 2-3 hours and 3-4x/night. He is not using Trimix currently. He also note a slow stream at times. - PSA - <0.04 - PVR = 0 mL PSA - < 0.4 (05/11/20) - < 0.04 (06/07/21) - <0.04 (05/21/22) - <0.04 (07/08/23) Rodolfo Samuels MD [address],[facility] [address] [address], [place], [address], [facility] - [facility] 07/08/2023 18:42:06
== END 2024-03-01 14:26 | disposition home or self-care (01) ==
LOC: NFLDUCREF 14:26
PROVIDERS: PCP Family Medicine; Visit Provider Family Medicine
DX: N30.00 Acute cystitis without hematuria (principal)
CPT/HCPCS: 87086

== ENCOUNTER 2024-09-17 12:11 | Emergency (ER) | payer OTHER, SELFPAY ==
--- OUTSIDE RECORDS SUMMARY | 2024-09-17 12:13 | XMS_ITS | Clinical Summary ---
Author Organization [facility] Address [address] [place] [address] Care Team Providers Care Technology Advisor Name Role Phone Osmin Abreu MD Primary Care Provider Allergies No known active allergies Medications multivitamin (MVI) tablet Take 1 Tablet by mouth once daily. 0 6 Active pantoprazole (PROTONIX) 20 mg tabletIndicatio ns:Chronic GERD Take 1 Tablet (20 mg) by mouth two times daily before meals. 180 Tablet 3 4 Active clobetasol (TEMOVATE) 0.05 % creamIndication s:Psoriasis Apply topically to affected area(s) two times daily. As needed for psoriasis. 60 g 1 4 Active oxybutynin XL (DITROPAN XL) 5 mg CR tabletIndicatio ns:Overactive bladder Take 1 Tablet (5 mg) by mouth once daily. 14 Tablet 4 Active Active Problems Problem Noted Date Diagnosed Date Chronic GERD 02/12/2024 Psoriasis 02/12/2024 Primary prostate adenocarcinoma 05/22/2017 Overview (06/08/2019): Kat 3 + 4=7 Acute pericarditis 08/23/2022 Coronary artery disease, nonobstructive by CTA Resolved Problems Problem Noted Date Diagnosed Date Resolved Date D-dimer, elevated 02/10/2023 02/12/2024 Intermittent chest pain 02/10/202301/20 Pericarditis 08/28/2022 08/28/2022 Acute idiopathic pericarditis 08/25/2022 08/28/2022 Overview (08/25/2022): Admitted 08/23/[address] [facility] Routine adult health maintenance 02/14/2016 11/07/2020 Overview (02/14/2016): Colonoscopy 01/2016 polyp repeat in 10 years Gynecomastia, male 12/14/2015 Carpal tunnel syndrome, left 03/03/2015 02/12/2024 Paroxysmal atrial fibrillati on (HC) self-limited during pericarditis 08/202209/18/2023 Coronary artery disease 01/2023 Encounters Date Type Department Care Team Description 09/17/2024 Nurse Triage [facility] [address] [facility] [place] [address] Osmin Abreu MD Chest Pain 07/03/2024 10:05 AM LEATHER CASE FINISHER Office Visit [facility] [address] [place] [address] Osmin Abreu MD Follow Up (Medication change) 07/03/2024 9:45 AM LEATHER CASE FINISHER Orders Only [facility] [address] [place] [address] Lab, [facility] 07/03/2024 Travel from Last 3 Months Immunizations Name Administration Dates Next Due COVID-19 vaccine (Olvin-J&J) MIKAELA OROZCO DTaP 08/27/2011 Measles 05/07/1980 Pneumococcal Conj 20-valent (Prevnar 20) 024 TD, UNSPECIFIED 08/27/2011 Tdap 02/11/2021,08/27/2011 Zoster (Shingrix-RZV, [...] of Communication with Friends and Fami ly 0 10/11/2022 Financial Resource Strain Answer Date R ecorded [...] Recorded Sex Assigned at Not on file Legal Sex Male 5:23 AM LEATHER CASE FINISHER Gender Identity Not on file Sexual Orientation Not on file Obstetrics History Last Filed Vital Signs Vital Sign Reading Time Taken Comments Blood Pressure 138/67 07/03/2024 9:57 AM LEATHER CASE FINISHER Pulse 70 07/03/2024 9:57 AM LEATHER CASE FINISHER Temperature 36.6 C (97.8 F) 05/22/2024 11:21 AM CDT Respiratory Rate 18 08/26/2022 8:35 AM LEATHER CASE FINISHER Oxygen Saturation 99% 07/03/2024 9:57 AM LEATHER CASE FINISHER Inhaled Oxygen Concentration - - Weight 112.7 kg (248 lb 6.4 oz) 07/03/2024 9:57 AM LEATHER CASE FINISHER Height 190.5 cm (6' 3) 09/18/2023 8:03 AM LEATHER CASE FINISHER Body Mass Index 31.05 09/18/2023 8:03 AM LEATHER CASE FINISHER Plan of Treatment Health Maintenance Due Date Last Done Comments COVID-19 vaccine series ( season) 2024 07/12/2021, 05/09/2021 Influenza for age 50-64 03/22/2024 [...] 15-65 Completed 09/18/2023 Hepatitis C screening for ag e 18-79 Completed 09/18/2023 Zoster (shingles) series for age 50+ Completed 02/12/2024, 09/18/2023 Pneumococcal series for age 50+ Completed Procedures Procedure Name Priority Date/Time Associated Diagnosis Comments HEPATIC FUNCTION PANEL Routine 07/03/2024 9:39 AM LEATHER CASE FINISHER Onychomycosis ANTI HIV 1/2 Routine 09/18/2023 8:55 AM LEATHER CASE FINISHER Encounter for screening for HIV ANTI HCV Routine 09/18/2023 8:55 AM LEATHER CASE FINISHER Need for hepatitis C screening test LIPID PANEL W REFLEX MEASURED LDL Routine 09/18/2023 8:55 AM LEATHER CASE FINISHER Dyslipidemia COLONOSCOPY 02/14/2016 7:39 AM CDT from Last 3 Months or Most Recently Relevant to Health Maintenance Results * (ABNORMAL) LIVER PANEL (HEPATIC FUNCTION PANEL) (07/03/2024 9:39 AM LEATHER CASE FINISHER) PROTEIN, TOTAL 8.0 6.1 - 8.1 g/dL [facility] ALBUMIN 4.2 3.6 - 5.1 g/dL [facility] GLOBULIN 3.8(H) 1.9 - 3.7 g/dL (calc) [facility] ALBUMIN/GLOBULIN RATIO 1.1 1.0 - 2.5 (calc) [facility] BILIRUBIN, TOTAL 0.4 0.2 - 1.2 mg/dL [facility] BILIRUBIN, DIRECT 0.1 < OR = 0.2 mg/dL [facility] BILIRUBIN, INDIRECT 0.3 0.2 - 1.2 mg/dL (calc) [facility] ALKALINE PHOSPHATASE 55 35 - 144 U/L [facility] AST 20 10 - 35 U/L [facility] ALT 22 9 - 46 U/L [facility] Blood BLOOD SPECIMEN / Unknown 07/03/2024 9:39 AM LEATHER CASE FINISHER 07/03/2024 9:40 AM LEATHER CASE FINISHER Lady CANDELARIO CHEMISTRY Final Result [facility] [address] [place] [address], [facility] [address] [place] [id number] * LIPID PANEL W REFLEX MEASURED LDL (09/18/2023 8:55 AM LEATHER CASE FINISHER) CHOLESTEROL,TOTAL 137 100 - 199 mg/dL 09/18/2023 6:16 PM LEATHER CASE FINISHER [facility] Comment: Cholesterol, Total Reference Ranges Desirable <200 mg/dL Borderline 200-239 mg/dL High >=240 mg/dL TRIGLYCERIDES 35 <150 mg/dL 09/18/2023 6:16 PM LEATHER CASE FINISHER [facility] HDL CHOLESTEROL 42 >40 mg/dL 6:16 PM LEATHER CASE FINISHER [facility] NON-HDL CHOLESTEROL 95 <145 mg/dl 09/18/2023 6:16 PM LEATHER CASE FINISHER [facility] CHOL/HDL RATIO 3.26 <4.50 09/18/2023 6:16 PM LEATHER CASE FINISHER [facility] LDL CHOLESTEROL 88 <=130 mg/dL 09/18/2023 6:16 PM LEATHER CASE FINISHER [facility] VLDL CHOLESTEROL 7 <=30 mg/dL 09/18/2023 6:16 PM LEATHER CASE FINISHER [facility] PROVIDER ORDERED STATUS RANDOM 09/18/2023 6:16 PM LEATHER CASE FINISHER [facility] Blood BLOOD SPECIMEN / Unknown Venipuncture / Unknown 09/18/2023 8:55 AM LEATHER CASE FINISHER 09/18/2023 8:56 AM LEATHER CASE FINISHER Osmin Abreu MD CHEMISTRY Final Result Performing Organization Address [facility] Co de Phone Number [facility] [address] [place] [phone], [place] * ANTI HCV (09/18/2023 8:55 AM LEATHER CASE FINISHER) HEPATITIS C ANTIBODY Non-Reacti ve Non-React bolivar 09/18/2023 5:37 PM LEATHER CASE FINISHER [facility] Comment:Please note, per www .CDC.gov: If a patient is known to be at high risk of HCV infection, or is symptomatic, and the physician's suspicion of HCV infection is high, HCV RNA testing is often employed and is of diagnostic value, even after an initial negative anti-HCV test result. Blood BLOOD SPECIMEN / Unknown Venipuncture / Unknown 09/18/2023 8:55 AM LEATHER CASE FINISHER 09/18/2023 8:56 AM LEATHER CASE FINISHER [place] Osmin Abreu MD SEND OUTS Final Result Performing Organization Address City/[facility]/ZIP Co de Phone Number [facility] [address] [place] [address], [place] * ANTI HIV 1/2 (09/18/2023 8:55 AM LEATHER CASE FINISHER) HIV-1/HIV-2 SCREEN Non-Reacti ve Non-Reacti ve 09/18/2023 6:50 PM LEATHER CASE FINISHER [facility] Comment:HIV-1 p24 and HIV-1/ HIV-2 Ab Not Detected. Blood BLOOD SPECIMEN / Unknown Venipuncture / Unknown 09/18/2023 8:55 AM LEATHER CASE FINISHER 09/18/2023 8:56 AM LEATHER CASE FINISHER Osmin Abreu MD SEND OUTS Final Result [facility] [address] [place] [address], [place] * COLONOSCOPY (02/14/2016 7:39 AM CDT) 02/14/2016 7:39 AM CDT Narrative 02/14/2016 7:39 AM CDT Patient Name: Archie Lira Procedure Date: 02/14/2016 Gender: Male Date of : 1965 Admit Type: Outpatient Procedure: Colonoscopy Proceduralist: Samuel Espinoza MD Referring MD: Robby Gardner Indications/Pre-Op Diagnosis: Screening for colorectal malignant neoplasm, This is the patient's first colonoscopy Medications: Fentanyl 100 micrograms IV, Midazolam 4 mg IV, The level of sedation administered was moderate Procedure Description: The patient had risks, benefits and alternatives explained to and gave informed consent. The patient had a stable cardiopulmonary status and judged an adequate candidate for conscious sedation. The PCF-Q290AL [id number] was passed through the anus and advanced to the cecum, identified by appendiceal orifice and ileocecal valve. The colonoscopy was performed without difficulty. The patient tolerated the procedure well. The quality of the bowel preparation was excellent. The ileocecal valve, appendiceal orifice, and rectum were photographed. Complications: No immediate complications. Estimated Blood Loss & Specimen: Estimated blood loss: none. Specimen collected - None Findings: The perianal and digital rectal examinations were normal. The entire examined colon appeared normal on direct and retroflexion views. Impressions/Post-Op Diagnosis: - The entire examined colon is normal on direct and retroflexion views. - No specimens collected. Recommendation: - Patient has a contact number available for emergencies. The signs and symptoms of potential delayed complications were discussed [...] Code(s): --- Professional --- G0121, Colorectal cancer screening; colonoscopy on individual not meeting criteria for high risk Diagnosis Code(s): --- Professional --- Z12.11, Encounter for screening for malignant neoplasm of colon CPT copyright 2015 [employer]. All rights reserved. The codes documented in this report are preliminary and upon statistician review may be revised to meet current [...] adequate candidate for conscious sedation. The PCF-Q290AL [id number] was passed through the anus and advanced [...] formalignant neoplasm of colon CPT copyright 2015 [employer]. All rights reserved. The codes documented in this report are preliminary and upon statistician reviewmay be revised to meet current compliance requirements. Scope In: 9:12:40 AM Scope Withdrawal Time 0 hours 9 minutes 22 seconds Scope Out: 9:30:42 AM Samuel Espinoza MD PROCEDURE ORD Final Res ult from Last 3 Months or Most Recently Relevant to Health Maintenance Insurance [employer] Member Subscriber Plan / Payer (Ef fective 2012-Present) Name:Archie Lira Relation to Subscriber:Self Name:Archie Lira Payer ID:[id number] (NAIC) Type:Not on file Address: [place] [phone] [employer] Advance Directives * Full Code (Latest Code [...] 10:47 AM 02/15/2014 3:21 PM Care Teams Technology Advisor Relationship Specialty Start Date End Date Osmin Abreu MD [address] [facility] [address] PCP - General Family Practice 03/09/20
--- OUTSIDE RECORDS SUMMARY | 2024-09-17 12:13 | XMS_ITS | Clinical Summary ---
Author Organization [facility] Address [address] [place] [address] Care Team Providers Care Door Tender Name Role Phone Robby Gardner Primary Care Provider [phone] Allergies No known active allergies Medications clobetasol (TEMOVATE) 0.05 % cream Apply topically 2 times daily as needed Active multivitamin, therapeutic with minerals (MULTI-VITAMIN) TABS tablet Take 1 tablet by mouth daily Active RANITIDINE HCL PO Take 150 mg by mouth 2 times daily Active Multiple Vitamins-Mineral s (ENERGY BOOSTER PO) Take 1 tablet by mouth 2 times daily (GNC) AM and NOON Active oxyCODONE-acetam inophen (PERCOCET) 5-325 MG per tabletIndication s:CA of prostate (H) Take 1 tablet by mouth every 6 hours as needed for other (pain control or improvement in physical function. Hold dose for analgesic side effects.) 20 tablet 8 Active Active Problems Problem Noted Date Diagnosed [...] at Not on file Legal Sex Male 4:42 AM INTERNATIONAL LOGISTICS MANAGER Gender Identity Not on file Sexual Orientation Not on file Last Filed Vital Signs Vital Sign Reading Time Taken Comments Blood Pressure 106/64 08/22/2017 12:16 PM INTERNATIONAL LOGISTICS MANAGER Pulse 84 08/21/2017 11:46 PM INTERNATIONAL LOGISTICS MANAGER Temperature 37.1 C (98.7 F) 08/22/2017 12:16 PM INTERNATIONAL LOGISTICS MANAGER Respiratory Rate 16 08/22/2017 12:16 PM INTERNATIONAL LOGISTICS MANAGER Oxygen Saturation 94% 08/22/2017 12:16 PM INTERNATIONAL LOGISTICS MANAGER Inhaled Oxygen Concentration - - Weight 96.7 kg (213 lb 3.2 oz) 08/22/2017 5:00 A M INTERNATIONAL LOGISTICS MANAGER Height 190.5 cm (6' 3) 08/20/2017 9:49 AM INTERNATIONAL LOGISTICS MANAGER Body Mass Index 26.65 08/20/2017 9:49 AM INTERNATIONAL LOGISTICS MANAGER Plan of Treatment Health Maintenance Due Date Last Done Comments ADVANCE CARE PLANNING 1965 ANNUAL REVIEW OF HM ORDERS 1965 CT COLONOGRAPHY 1965 FIT 1965 FLEX SIG 1965 sDNA (Cologuard) 1965 HEPATITIS B IMMUNIZATION (1 of 3 - 19+ 3-dose series) 1984 LIPID 2005 LUNG CANCER SCREENING 10/06/2015 GLUCOSE 08/22/2020 08/22/2017, 08/21/2017 COVID-19 Vaccine ( season) 2024 05/09/2021 INFLUENZA VACCINE (#1) 2024 PHQ-2 (once per calendar year) 2024 YEARLY PREVENTIVE VISIT 09/18/2024 09/18/2023, 03/09 COLONOSCOPY 02/13/2026 02/14/2016 COLORECTAL CANCER SCREENING 02/13/2026 DTAP/TDAP/TD IMMUNIZATION (4 - Td or Tdap) 02/11/2031 02/11/2021, 08/27/2011, 08/27/2011, Additional history exists HEPATITIS C SCREENING Completed 09/18/2023 HIV SCREENING Completed 09/18/2023 ZOSTER IMMUNIZATION Completed 02/12/2024, Pneumococcal Vaccine: 50+ Years Completed 07/03/2024 HPV IMMUNIZATION Aged Out No longer e ligible based on patient's age to complete this topic MENINGITIS IMMUNIZATION Aged Out No l onger eligible based on patient's age to complete this topic Procedures Procedure Name Priority Date/Time Associated Diagnosis Comments GLUCOSE BY METER Routine 08/22/2017 5:52 AM INTERNATIONAL LOGISTICS MANAGER CA of prostate (H) from Last 3 Months or Most Recently Relevant to Health Maintenance Results * (ABNORMAL) Glucose by meter (08/22/2017 5:52 AM INTERNATIONAL LOGISTICS MANAGER) Glucose 114(H) 70 - 99 mg/dL 08/22/2017 6:01 AM INTERNATIONAL LOGISTICS MANAGER POINT OF CARE TEST, GLUCOSE 08/22/2017 5:52 AM INTERNATIONAL LOGISTICS MANAGER 08/22/2017 6:01 AM INTERNATIONAL LOGISTICS MANAGER Luiz Michele [facility] Final Result POINT OF CARE TEST, GLUCOSE from Last 3 Months or Most Recently Relevant to Health Maintenance Insurance [employer] [place] Advance Directives For more information, please contact: [phone] * Full Code (Latest Code Status on File) Date Activated Date Inactivated Comments 08/21/2017 7:47 AM * Full Code Date Activated Date Inactivated Comments 08/20/2017 4:17 PM 08/21/2017 7:47 AM Care Teams Door Tender Relationship Specialty Start Date End Date Robby Gardner [address] [place] [address] PCP - General Family Practice 08/09/17
--- OUTSIDE RECORDS SUMMARY | 2024-09-17 12:14 | XMS_ITS | Data Portability ---
Author Organization [facility], [facility] Address [address] [place] [address] Care Team Providers Care Feather Maker Name Role Phone [facility] Primary Care Provider Assessment No assessment recorded. Plan of Treatment Reminders Order Date Submit Date Provider Last Modified By Organization Details Last Modified Time Details Appointments None record ed. Lab PSA, serum or plasma 2023 024 [email or web address] [facility], [address], [place], [address], 4 10:41:50 PSA, total, serum or plasma 2023 024 [email or web address] [facility], [address], [place], [address], 4 12:55:47 PSA, serum or plasma 2022 023 [email or web address] [facility], [address], [place], [address], 3 15:07:41 PSA, total, serum or plasma 2022 023 [email or web address] [facility], [address], [place], [address], 3 15:50:38 PSA, serum or plasma 2021 022 [email or web address] [facility], [address], [place], [address], 2 10:30:01 PSA, total, serum or plasma 2021 022 [email or web address] [facility], [address], [place], [address], 2 08:53:20 PSA, serum or plasma 2020 021 [email or web address] Not available 1 15:12:16 PSA, total, serum or plasma 2020 021 [email or web address] Not available 17:02:18 PSA, serum or plasma 2019 020 [email or web address] Not available 0 10:46:39 Referral magnolia christiansen referr al - Right breast lump, Dr. Terri Drake 2021 022 [facility], [address], [place], [address], 2 08:07:16 Procedures None record ed. Surgeries None record ed. Imaging None record ed. Medication Orders Gemtes a 75 mg tablet 2023 024 [facility] [address] [place] [address], [address], 4 10:53:04 Patient TargetsNo targets recorded. Patient Instructions Encounter Date Encounter Id Patient Instructions Last Modified By Organization Details Last Modified Time 05/11/2020 [id number] PSA is <0.04. Ellis s meds for penile inj. Has not used it much. F/up annually for PSA. [email or web address] Not available 05/13/2020 18:19:31 Reason for Referral General Surgeon Referral for Mass of right breast Right breast lump, Dr. Terri Drake Referring Physician: Rodolfo Samuels, Urology, Encounter Date: 05/21/2022 Results Created Date Observation Date Name Description Value Unit Range Abnormal Flag Note LastModifiedBy Organization Detail LastModifiedTime 05/11/20 20 05/11/2020 PSA, serum or plasm a PSA, Total 10.2 ng/Ml Not Available [facility] [address], [place], [address], 05/11/2020 10:46:21 06/07/20 21 06/07/2021 PSA, serum or plasm a PSA, Total <0.04n g/mL Not Available [facility] [address], [place], [address], 06/07/2021 15:11:28 05/21/20 22 05/21/2022 PSA, serum or plasm a PSA <0.04n g/mL 0-4.0 Not Available [facility] [address], [place], [address], 05/21/2022 10:29:50 07/08/20 23 07/08/2023 PSA, serum or plasm a PSA <0.04n g/mL 0-4.0 Not Available [facility] [address], [place], [address], 07/08/2023 14:54:46 07/06/20 24 07/06/2024 PSA, serum or plasm a PSA <0.04n g/mL 0-4.0 NG/mL Not Available [facility] [address], [place], [address], 06/30/2024 11:45:44 Result Notes None recorded. Problems Name Problem SNOMED Code Status Onset Date Resolution Date Notes Provider Name and Address Organization Details Recorded Time Malignant tumor of prostate 686995919 Active 2016 C61 : Malignant neoplasm of prostate Not Available [facility] 0 02:09:05 Problem Notes None recorded. Procedures Surgical History Date Name Laterality Status Provider Name and Address Organization Details Recorded Time 07/06/20 Blood Draw/ACCESS CONTROL SPECIALIST/PSA RESULTS completed Albina Cho [facility] 07/06/2024 10:30:27 07/08/20 23 ACCESS CONTROL SPECIALIST/blood draw completed Ashly Jimenez [facility] 07/08/2023 14:54:42 07/08/20 23 Bladder Scan completed Amanda [facility] 07/08/2023 15:26:35 05/21/20 22 ACCESS CONTROL SPECIALIST/blood draw completed Rodolfo Samuels MD [address] [place] [address],[address], [address] [place] [address] 05/21/2022 10:29:34 06/07/20 21 Blood Draw/ACCESS CONTROL SPECIALIST/PSA RESULTS completed Rodolfo Samuels MD [address] [place] [address],[facility] [address], [address] [place] [address] 06/07/2021 15:11:19 05/11/20 20 Blood Draw/ACCESS CONTROL SPECIALIST/PSA RESULTS completed Montserrat Esquivel [facility] 05/11/2020 10:46:17 12/21/19 19 colonoscopy completed Rodolfo Samuels MD [address] [place] [address],[address], [address], [facility] 06/07/2021 15:10:49 Appendectomy completed Chelsi Parra [facility] 05/11/2020 10:25:07 procedure on neck completed Chelsi bates [facility] 05/11/2020 10:25:16 Carpal tunnel surgery completed Chelsi [facility] 05/11/2020 10:25:38 Prostatectomy completed Chelsi Parra [facility] 05/11/2020 10:25:45 Imaging Results None recorded. Procedure [...] completed Not Available Not Available Not Available hydrocodone 5 mg-acetamin ophen 325 mg tablet TAKE 1 TO 2 TABLETS BY MOUTH EVERY 6 HOURS NEEDED FOR PAIN active Not Available Not Available No t Available clobetasol 0.05 % topical cream APPLY THIN LAYER TOPICALLY TO AFFECTED AREA TWICE DAILY NEEDED FOR PSORIASIS active Not Available Not Available No t Available sulfamethox azole 800 mg-trimetho prim 160 mg tablet TAKE ONE TABLET BY MOUTH TWICE DAILY for 7 days* 07/06 completed Not Available Not Available Not Available pantoprazol e 20 mg tablet,jose m yed release TAKE 1 TABLET BY MOUTH TWICE DAILY BEFORE MEAL(S) active Not Available Not Available No t Available terbinafine HCl 250 mg tablet TAKE 1 TABLET BY MOUTH ONCE DAILY active Not Available Not Available No t [...] completed Not Available Not Available Not Available oxybutynin chloride ER 5 mg tablet,exte nded release 24 hr TAKE 1 TABLET BY MOUTH ONCE DAILY 07/06 completed Not Available Not Available Not Available insulin syringe U-100 with needle 1 mL 28 gauge x 2 05/21 completed Not Available [...] completed Not Available Not Available Not Available Gemtesa 75 mg tablet Take 1 tablet every day by oral route. 2023 active Not Available Not Available Not Avai lable Vitals Date Recorded Body height Body mass index (BMI) Body weight Provider Name and Address Organization Details Last Updated DateTime 05/21/2022 190.5 cm 29.4 kg/m2 368322.21 g Rodolfo Samuels MD [address] [address] [place] [address] 05/21/2022 10:28:24 Date Recorded Body height Body mass index (BMI) Body weight Provider Name and Address Organization Details Last Updated DateTime 05/11/2020 190.5 cm 30 kg/m2 341135.17 g Chelsi Parra [facility] 05/11/2020 10:22:41 Date Recorded Body height Body mass index (BMI) Body weight Provider Name and Address Organization Details Last Updated DateTime 07/08/2023 190.5 cm 30 kg/m2 018993.17 g Ashly Jimenez [facility] 07/08/2023 14:53:20 Date Recorded Body height Body mass index (BMI) Body weight Provider Name and Address Organization Details Last Updated DateTime 07/06/2024 190.5 cm 30 kg/m2 745359.17 g Albina Cho [facility] 07/06/2024 10:29:43 Date Recorded Body height Body mass index (BMI) Body weight Provider Name and Address Organization Details Last Updated DateTime 06/07/2021 190.5 cm 30.6 kg/m2 620057.13 brett Samuels MD [address] [place] [address] [place] [address] 06/07/2021 15:09:54 Social History Question Answer Notes LastModified by Organizat ion Details LastModified Time Tobacco Smoking Status Never Smoker Chelsi nova [facility] 05/11/2020 10:24:43 What Was The Date Of Your Most Recent Tobacco Screening? 07/06/2024 [email or web address] Information not available 07/06/2024 Do You Use Any Illicit Or Recreational Drugs? No [email or web address] Information not available 06/07/2021 Sex: Unknown Functional Status None recorded. Mental Status None recorded. Family History Relationship Description Onset Age of this Age Resolved Age Notes LastModified by Organization Details LastModified Time Mother Family history of breast cancer ifrah Not available 2019 10:24:19 Mother Malignant neoplasm of skin ifrah Not available 2019 10:24:30 Maternal Grandmother Family history of cancer of colon [email or web address] Not available 2019 10:24:38 Medical History Condition Response GERD/Acid Reflux Y Cancer Y Immunizations Vaccine Type Date Status Note Provider Nam e and Address Organization Details Recorded Time measles 0 completed Ashly nova, [facility] 07/08/2023 14:53:27 COVID-19, mRNA, LNP-S, PF, 30 mcg/0.3 mL dose 1 completed Ashly Tony null, [facility] 07/08/2023 14:53:27 COVID-19 vaccine, vector-nr, rS-Ad26, PF, 0.5 mL 1 completed Ashly Jimenez null, [facility] 07/08/2023 14:53:27 Tdap 2 completed Ashly Jimenez null, [facility] 07/08/2023 14:53:27 Tdap 1 completed Ashlyalverto Jimenez null, [facility] 07/08/2023 14:53:27 DTaP 2 completed Ashlyalverto Jimenez null, [facility] 07/08/2023 14:53:27 zoster recombinant 4 completed Albina nova, [facility] 07/06/2024 10:29:50 zoster recombinant 4 completed Albina nova, [facility] 07/06/2024 10:29:50 Pneumococcal conjugate PCV20, polysaccharide PZT993 conjugate, adjuvant, PF 4 completed Albina nova, [facility] 07/06/2024 10:29:50 Past Encounters Encounter ID Performer Location Encounter Start Date Encounter Closed Date Diagnosis/Indication Diagnosis SNOMED-CT Code Diagnosis ICD10 Code Diagnosis Note [id number] Luizanita Angulo [address] [place] [address] 05/11/2020 10:00:12 05/16/2020 05:44:02 Malignant tumor of prostate 887251383 C61 [id number] MD Adele Vasquez [address] [place] [address] 06/07/2021 14:43:08 06/12/2021 10:03:15 Carcinoma of prostate 581248436 C61 Prostate cancer - pT2 No Mx - Kat 3+3 = 6 (tertiary 4)- s/p RAL prostatect arthur - (08/20/17) - (focally positive margin)- PSA remains undetectab le (< 0.04)- Follow-up in 1 year with PSA Malignant tumor of prostate 831868882 C61 Erectile d ysfunction following radical prostatectomy 8533305676 48151 N52.31 2. Erectile dysfunctio n- due to prostate surgery- continue Trimix 0.1-0.4 mL prn [id number] Rodolfo Samuels MD [address] [place] [address] 05/21/2022 09:34:46 05/24/2022 14:48:28 Carcinoma of prostate 213793909 C61 Prostate cancer - pT2 No Mx - [place] 3+3 = 6 (tertiary 4)- s/p RAL prostatect arthur - (08/20/17) - (focally positive margin)- PSA remains undetectab le (< 0.04)- Follow-up in 1 year with PSA Erectile d ysfunction following radical prostatectomy 5640961387 39451 N52.31 2. Erectile dysfunctio n- due to prostate surgery- continue Trimix 0.1-0.4 mL prn Mass of right breast 269 [id number] N63.10 3. Right Breast lump- refer to General surgery [id number] Rodolfo Samuels MD [address] [place] [address] 07/08/2023 14:34:30 07/09/2023 14:00:36 Carcinoma of prostate 801816776 C61 1. Prostate cancer - pT2 No Mx - [place] 3+3 = 6 (tertiary 4)- s/p RAL prostatect arthur - (08/20/17) - (focally positive margin)- PSA (< 0.04) - remains undetectab le- Follow-up in 1 year with PSA Erectile d ysfunction following radical prostatectomy 8586230028 82901 N52.31 3. Erectile dysfunctio n- due to prostate surgery- observe for now (consider retrying Trimix in the future) Slowing of urinary stream 18909009 R39.12 2. Slow urine stream- bladder empties well- if slow stream worsens - recommend further evaluation with Csytoscopy [id number] Albina Marquis [facility] [address] [place] [address] 07/06/2024 09:42:55 07/07/2024 14:07:12 Malignant tumor of prostate 506885336 C61 Carcinoma of prostate 25 3105663 C61 1. Prostate cancer - pT2 No Mx - Kat 3+3 = 6 (tertiary 4)- s/p RAL prostatect arthur - (08/20/17) - (focally positive margin)- PSA (< 0.04) - remains undetectab le- Follow-up in 1 year with PSA Erectile d ysfunction following radical prostatectomy 1476917168 96177 N52.31 3. Erectile dysfunctio n- due to prostate surgery- observe for now (consider retrying Trimix in the future) Urgent fahad arturo to urinate 60053930 R39.15 2. Urinary urgency- try Gemtesa 75 mg daily Health Concerns Section Related Observation LastModified by Organization Detai ls LastModified Time None Recorded Concern Status LastModified by Organization Details LastModified Time None Recorded Advance Directives Directive None Recorded Payers Encounter Date Sequence Insurance Name Policy Number Policy Dill Covered Member ID Dill Member ID Guarantor Name 06/07/2021 1 [place] [id number] Archie Lira [id number] Archie Lira 05/21/2022 1 [place] [id number] Archie Lira [id number] Archie Lira 07/08/2023 1 [facility] [employer] [id number] Lira [id number] Archie Lira 07/06/2024 1 [place] [id number] Lira [id number] Archie Lira Notes Date Note Type Note Provider Name and Address Organization Details Recorded Time 05/11/2020 text/html ARCHIE LIRA is a 54 year old male. Continent. Pt has less LUTS. Has partial erections. HPI: Date of diagnosis: 11/2/17 Bx by: Dr Rodolfo Samuels PSA: ALBERTO: Nl Volume: 35 cc Pathology: Gl score 7. Gr 3/4 RLB; 3/3 RLA,RA,RM,RB Bone scan:NA Ct Scan: NA Urol issues: None IIEF : 19 . Notes ED post op is not a big issue AUA score: 21 Treatment: 08/20/17: RARP path: Gr 3/3 ( tertiary 4); p T2N0M0 ( focally pos margin). Luiz nova [facility] 05/13/2020 18:19:54 06/07/2021 text/html 55 yo male with history of Prostate cancer - pT2 No Mx - Kat 3+3 = 6 (tertiary 4) - s/p RAL prostatectomy (08/20/17) - (focally positive margin). + ED. 06/07/21 - He presents for follow-up on Prostate cancer. He voids every 2-3 hours and 1x/night. He reports occasional urgency with a rare episode of leakage. No spontaneous erects - uses penile injections with good results.- PSA - < 0.04 PSA - < 0.4 (05/11/20)- < 0.04 (06/07/21) Rodolfo Samuels MD [address] [place] [address],[address], [place], [address] 06/10/2021 19:01:21 05/21/2022 text/html 56 yo male with history of Prostate cancer - pT2 No Mx - [place] 3+3 = 6 (tertiary 4) - s/p [...] - no pain - has not changed size.- PSA - <0.04 PSA - < 0.4 (05/11/20)- < 0.04 (06/07/21)- <0.04 (05/21/22) Rodolfo Samuels MD [address] [place] [address],[address], [place], [address], [facility] 05/21/2022 11:26:41 07/08/2023 text/html 57 yo male with history of Prostate cancer - pT2 No Mx - [place] 3+3 = 6 (tertiary 4)- s/p RAL prostatectomy (08/20/17) - (focally positive margin)+ ED. 06/07/21 - He presents for follow-up [...] He also note a slow stream at times.- PSA - <0.04- PVR = 0 mL PSA - < 0.4 (05/11/20)- < 0.04 (06/07/21)- <0.04 (05/21/22)- <0.04 (07/08/23) Rodolfo Samuels MD [address] [place] [address],[address], [place], [address], [facility] 07/08/2023 18:42:06 07/06/2024 text/html 58yo male with history of Prostate cancer - pT2 No Mx - Kat 3+3 = 6 (tertiary 4)- s/p RAL prostatectomy (08/20/17) - (focally positive margin)+ ED. 05/21/22 He presents for follow-up on Prostate [...] also note a slow stream at times. 07/06/24-He presents for follow-up on Prostate cancer. He voids every 2 hours and 3-4x/night. He notes urgency.- PSA - <0.04 PSA - < 0.4 (05/11/20)- < 0.04 (06/07/21)- <0.04 (05/21/22)- <0.04 (07/08/23)- <0.04 (07/06/24) H[facility] [place] [facility] 07/06/2024 10:56:32
[2024-09-17 12:26] VITALS: BP 137/73; PULSE 72; RESP 18; TEMP 36.6; O2SAT 98; BMI 30.6
--- NOTE | 2024-09-17 12:43 | ED.CHESTPAIN ---
HPI - Chest Pain General Date Seen: 09/17/24 Chief Complaint: Chest Pain Stated Complaint: myocarditis?-sent by triage Time Seen by Provider: 09/17/24 12:12 Source: patient Mode of arrival: ambulatory Limitations: no limitations History of Present Illness HPI narrative: Patient is a 58-year-old male presenting for chest pain. Chest pain is a going on for the past 3 days. States he had a viral infection last week that has since resolved but then began to have this chest pain that he states is intermittent. 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 Does notice increasing pain occasionally when he takes a deep breath. He has no history of blood clots. Is not on any hormone therapy. No lower extremity swelling. No recent travel. Does have a history of prostate cancer. States this pain again is relatively mild in his this some sternal chest region that does not radiate. States he is feeling slightly lightheaded but has not felt like he was going to pass out at all. Occasionally will feel short of breath also. Denies headache, vision changes, abdominal pain, diarrhea, constipation, weakness, numbness. He has been off medication for his myocarditis now for year and half and has had no further issues since being off the medication. He is concerned he could have myocarditis again. Related Data Home Medications ?Medication ?Instructions ?Recorded ?Confirmed pantoprazole 20 mg tablet,delayed 20 mg PO Q12H 08/23/22 09/17/24 release multivitamin 1 tab PO DAILY 02/25/24 09/17/24 clobetasol 0.05 % topical cream topical BID PRN 09/17/24 Previous Rx's ?Medication ?Instructions ?Recorded hydrocodone 5 mg-acetaminophen 325 1 - 2 tab PO Q6H PRN Pain #20 tabs 02/27/24 mg tablet Allergies Allergy/AdvReac Type Severity Reaction Status Date / Time No Known Drug Allergies Allergy Verified 09/17/24 12:32 Review of Systems Status of ROS Reports: 10 or more systems reviewed and unremarkable except as noted in History and below [facility] Medical History CAD (coronary artery disease) ?I25.10 - Atherosclerotic heart disease of [place] coronary artery without angina pectoris (ICD-10) Prostate cancer ?C61 - Malignant neoplasm of prostate (ICD-10) GERD (gastroesophageal reflux disease) ?K21.9 - Gastro-esophageal reflux disease without esophagitis (ICD-10) Social History Smoking Status: Never smoker How often do you have a drink containing alcohol: 2-4 times a month How many standard drinks containing alcohol do you have on a typical day: 3 or 4 How often do you have six or more drinks on one occasion: Less than monthly AUDIT-C Alcohol total score: 4 Non-prescribed substance use: denies use Caffeine: No service: No Exam Narrative Exam Narrative: Const: Well-nourished, Well-developed, in mild distress Eyes: PERRL, no conjunctival injection, and symmetrical lids HENT: Atraumatic external nose and ears. Moist mucous membranes. Neck: Symmetric, trachea midline, No thyromegaly. CVS: RRR, No murmurs or gallops. Peripheral pulses 2+ and equal in all extremities RESP: Unlabored respiratory effort. Clear to auscultation bilaterally. GI: Nontender/Nondistended, No rebound or guarding. MSK:Extremities w/o deformity, Normal Active ROM Skin: Warm, Dry. No rashes or lesions. Neuro: Normal Muscle tone, No focal neurological deficits. Psych: Awake, Alert, & Oriented x3. Appropriate mood and affect. Const Vital Signs, click to edit/add: Vital Signs - 24 hr 09/17/24 12:26 Temperature 97.9 F Pulse Rate [Femoral] 72 Respiratory Rate 18 Blood Pressure [Right Upper Arm] 137/73 Pulse Oximetry 98 Oxygen Delivery Method Room Air Course Vital Signs Vital signs: Initial Vital Signs Temperature 97.9 F 09/17/24 12:26 Temperature Source Temporal Artery Scan 09/17/24 12:26 Pulse Rate 72 09/17/24 12:26 Respiratory Rate 18 09/17/24 12:26 Blood Pressure 137/73 09/17/24 12:26 Blood Pressure Mean 94 09/17/24 12:26 Blood Pressure Position Sitting 09/17/24 12:26 Pulse Oximetry 98 09/17/24 12:26 Oxygen Delivery Method Room Air 09/17/24 12:26 Vital Signs Temperature 97.9 F 09/17/24 12:26 Pulse Rate 72 09/17/24 12:26 Respiratory Rate 18 09/17/24 12:26 Blood Pressure 137/73 09/17/24 12:26 Pulse Oximetry 98 09/17/24 12:26 Oxygen Delivery Method Room Air 09/17/24 12:26 Temperature 97.9 F 09/17/24 12:26 Pulse Rate 72 09/17/24 12:26 Respiratory Rate 18 09/17/24 12:26 Blood Pressure 137/73 09/17/24 12:26 Pulse Oximetry 98 09/17/24 12:26 Oxygen Delivery Method Room Air 09/17/24 12:26 MDM - Chest Pain MDM Narrative Medical decision making narrative: Patient is a 58-year-old male presenting for chest pain. The differential diagnosis of chest pain is broad and includes common etiologies such as musculoskeletal strain, GERD, pneumonia, etc. More serious etiologies considered include PE, coronary artery disease, pneumothorax, aortic dissection, aortic aneurysm. Patient has had previous elevated D-dimer before with negative CTA is but his pain is again consistent with what could be a PE so a D-dimer will be ordered. EKG and troponin looking for ACS and myocarditis ordered. Will also order chest x-ray look for pneumonia or pneumothorax. Magnesium, COVID/flu/RSV, BNP, BMP, CBC all ordered. Lab work returned showing no concerning findings other than again quite elevated D-dimer. CTA will be ordered. Chest x-ray reviewed by myself the radiologist shows no concerning abnormalities. EKG and troponin showed no concerning findings as reviewed by myself. Considering symptoms have been going on for several days I do not believe repeat troponin is necessary. CTA reviewed by myself and the radiologist shows no acute concerning abnormalities. On my review vital signs are stable throughout time in in the emergency department. Oximetry stayed in the mid to high 90s. conveyor monitor showed no concerning arrhythmias. This time I do not know what is causing his chest pain but I do believe he is safe for discharge. He is agreeable to this plan. Lab Data Labs: Lab Results 09/17/24 09/17/24 Range/Units 12:51 12:58 WBC 4.42 L (4.50-11.00) K/uL RBC 5.24 (4.30-5.90) m/uL Hgb 14.9 (13.5-17.5) gm/dL Hct 44.1 (37.0-53.0) % MCV 84 (80-100) fL MCH 28 (26-34) pg MCHC 34 (32-36) gm/dL RDW Coeff of Maxine 12.4 (11.5-15.5) % Plt Count 181 (140-440) K/uL Neut % (Auto) 60.7 (42.0-72.0) % Lymph % (Auto) 27.8 (20-44) % [place] % (Auto) 8.6 (0.0-11.0) % Eos % (Auto) 2.5 (0.0-7.0) % Baso % (Auto) 0.2 (0.0-3.0) % Neut # (Auto) 2.70 (1.7-7.0) K/uL Lymph # (Auto) 1.20 (0.90-2.90) K/uL [place] # (Auto) 0.40 (0.00-0.90) K/UL Eos # (Auto) 0.10 (0.00-0.50) K/uL Baso # (Auto) 0.00 (0.00-0.30) K/uL Abs Immat Gran (auto) 0.00 (0.00-0.30) K/uL Imm/Tot Granulo (auto) 0.2 % D-Dimer Quant (PE/DVT) 5.97 H (0.00-0.50) ug/ml Sodium 135 (135-149) mmol/L Potassium 4.8 (3.6-5.1) mmol/L Chloride 100 (96-114) mmol/L Carbon Dioxide 29 (20-32) mmol/L Anion Gap 6 L (7-15) mEq/L BUN 13 (7-30) mg/dL Creatinine 1.0 (0.5-1.5) mg/dL Estimated Creat Clear 96.24 Estimated GFR 87 ml/min Glucose 103 (60-115) mg/dL Calcium 8.9 (8.4-10.6) mg/dL Magnesium 2.1 (1.5-2.6) mg/dL Troponin I < 0.01 L (0.01-0.04) ng/mL NT-Pro-B Natriuret Pep 26 pg/mL SARS-CoV-2 (PCR) Negative SARS-CoV-2 (Negative) Influenza Type A (PCR) Negative PCR FLU A (Negative) Influenza Type B (PCR) Negative PCR FLU B (Negative) RSV (PCR) Negative PCR RSV (Negative) Imaging Data Chest x-ray: Attestation: I have reviewed the pertinent imaging results. Radiologist's impression: Mild nonspecific interstitial prominence without evidence of dense consolidation. Dictated by Jose L Johnson MD @ 09/17/2024 1:54:47 PM CTA chest: Attestation: I have reviewed the pertinent imaging results. Radiologist's impression: No pulmonary embolism or acute cardiopulmonary process. Please note that all CT scans at this facility use dose modulation, iterative reconstruction, and/or weight-based dosing when appropriate to reduce radiation dose to as low as reasonably achievable. Dictated by Delfino Ro MD @ 09/17/2024 3:00:55 PM ECG Data Attestation: I personally reviewed and interpreted this ECG as follows: Prior ECG tracings: available for review Interpretation: Normal sinus rhythm with rate 67 beats per minute, normal intervals, normal axis, no ST or T-wave abnormalities. Appears similar previous EKGs on file Discharge Plan Discharge Clinical Impression: Atypical chest pain Patient Disposition: Home, Self-Care Condition: Stable Instructions: Noncardiac Chest Pain (ED) Additional Instructions: Take Tylenol and ibuprofen for your pain. Did if the pain persist into next week follow-up with your stretching machine operator or primary care provider. Return to emergency department for any new or worsening symptoms. You do have a chronically elevated D-dimer and I am not sure why. Prescriptions: No Action pantoprazole 20 mg tablet,delayed release (DR/EC) 20 mg PO Q12H Patient Comments: TAKE 1 TABLET BY MOUTH THREE TIMES DAILY BEFORE MEAL(S) multivitamin Tablet 1 tab PO DAILY hydrocodone-acetaminophen 5-325 mg tablet 1 - 2 tab PO Q6H PRN (Reason: Pain) Qty: 20 0RF Rx Instructions: 1 - 2 tab orally as needed clobetasol 0.05 % cream topical BID PRN Follow Up/Referrals: Osmin Abreu MD [Primary Care Provider] - Stand Alone [facility] Info Inst[facility]
--- OUTSIDE RECORDS SUMMARY | 2024-09-17 12:48 | XMS_ITS | Clinical Summary ---
Author Organization [facility] Address [address] [place] [address] Care Team Providers Care Trim Attacher Name Role Phone Osmin Abreu MD Primary [...] 08/25/2022 08/28/2022 Overview (08/25/2022): Admitted 08/23/22 to [facility] Routine adult health maintenance 02/14/2016 11/07/2020 Overview (02/14/2016): Colonoscopy 01/2016 polyp repeat in 10 years Gynecomastia, male 12/14/2015 Carpal tunnel syndrome, left 03/03/2015 02/12/2024 Paroxysmal atrial fibrillati on (HC) self-limited during pericarditis 08/202209/18/2023 Coronary artery disease 01/2023 Encounters Date Type Department Care Team Description 09/17/2024 Nurse Triage [facility] [address] [facility] [address] Osmin Abreu MD Chest Pain 07/03/2024 10:05 AM FIRE MANAGER Office Visit [facility] [address] [place] [address] Osmin Abreu MD Follow Up (Medication change) 07/03/2024 9:45 AM FIRE MANAGER Orders Only [facility] [address] [place] [address] Lab, [place] [facility] 07/03/2024 Travel from Last [...] on file Legal Sex Male 5:23 AM FIRE MANAGER Gender Identity Not on file Sexual Orientation Not on file Obstetrics History Last Filed Vital Signs Vital Sign Reading Time Taken Comments Blood Pressure 138/67 07/03/2024 9:57 AM FIRE MANAGER Pulse 70 07/03/2024 9:57 AM FIRE MANAGER Temperature 36.6 C (97.8 F) 05/22/2024 11:21 AM CDT Respiratory Rate 18 08/26/2022 8:35 AM FIRE MANAGER Oxygen Saturation 99% 07/03/2024 9:57 AM FIRE MANAGER Inhaled Oxygen Concentration - - Weight 112.7 kg (248 lb 6.4 oz) 07/03/2024 9:57 AM FIRE MANAGER Height 190.5 cm (6' 3) 09/18/2023 8:03 AM FIRE MANAGER Body Mass Index 31.05 09/18/2023 8:03 AM FIRE MANAGER Plan of Treatment Health Maintenance Due [...] HEPATIC FUNCTION PANEL Routine 07/03/2024 9:39 AM FIRE MANAGER Onychomycosis ANTI HIV 1/2 Routine 09/18/2023 8:55 AM FIRE MANAGER Encounter for screening for HIV ANTI HCV Routine 09/18/2023 8:55 AM FIRE MANAGER Need for hepatitis C screening test LIPID PANEL W REFLEX MEASURED LDL Routine 09/18/2023 8:55 AM FIRE MANAGER Dyslipidemia COLONOSCOPY 02/14/2016 7:39 AM CDT from Last 3 Months or Most Recently Relevant to Health Maintenance Results * (ABNORMAL) LIVER PANEL (HEPATIC FUNCTION PANEL) (07/03/2024 9:39 AM FIRE MANAGER) PROTEIN, TOTAL 8.0 6.1 - 8.1 g/dL [...] BLOOD SPECIMEN / Unknown 07/03/2024 9:39 AM FIRE MANAGER 07/03/2024 9:40 AM FIRE MANAGER Lady CANDELARIO CHEMISTRY Final Result [facility] [address] [place] [address], [facility] [address] [place] [phone] * LIPID PANEL W REFLEX MEASURED LDL (09/18/2023 8:55 AM FIRE MANAGER) CHOLESTEROL,TOTAL 137 100 - 199 mg/dL 09/18/2023 6:16 PM FIRE MANAGER [facility] Comment: Cholesterol, Total Reference Ranges Desirable <200 mg/dL Borderline 200-239 mg/dL High >=240 mg/dL TRIGLYCERIDES 35 <150 mg/dL 09/18/2023 6:16 PM FIRE MANAGER [facility] HDL CHOLESTEROL 42 >40 mg/dL 6:16 PM FIRE MANAGER [facility] NON-HDL CHOLESTEROL 95 <145 mg/dl 09/18/2023 6:16 PM FIRE MANAGER [facility] CHOL/HDL RATIO 3.26 <4.50 09/18/2023 6:16 PM FIRE MANAGER [facility] LDL CHOLESTEROL 88 <=130 mg/dL 09/18/2023 6:16 PM FIRE MANAGER [facility] VLDL CHOLESTEROL 7 <=30 mg/dL 09/18/2023 6:16 PM FIRE MANAGER [facility] PROVIDER ORDERED STATUS RANDOM 09/18/2023 6:16 PM FIRE MANAGER [facility] Blood BLOOD SPECIMEN / Unknown Venipuncture / Unknown 09/18/2023 8:55 AM FIRE MANAGER 09/18/2023 8:56 AM FIRE MANAGER Osmin Abreu MD CHEMISTRY Final Result Performing Organization Address [facility] Co de Phone Number [facility] [address] [place] [phone], [place] * ANTI HCV (09/18/2023 8:55 AM FIRE MANAGER) HEPATITIS C ANTIBODY Non-Reacti ve Non-React bolivar 09/18/2023 5:37 PM FIRE MANAGER [facility] Comment:Please note, per www .CDC.gov: If a patient is known to be at high risk of HCV infection, or is symptomatic, and the physician's suspicion of HCV infection is high, HCV RNA testing is often employed and is of diagnostic value, even after an initial negative anti-HCV test result. Blood BLOOD SPECIMEN / Unknown Venipuncture / Unknown 09/18/2023 8:55 AM FIRE MANAGER 09/18/2023 8:56 AM FIRE MANAGER us Osmin Abreu MD SEND OUTS Final Result Performing Organization Address City/[facility]/ZIP Co de Phone Number [facility] [address] [place] [phone], [place] * ANTI HIV 1/2 (09/18/2023 8:55 AM FIRE MANAGER) HIV-1/HIV-2 SCREEN Non-Reacti ve Non-Reacti ve 09/18/2023 6:50 PM FIRE MANAGER [facility] Comment:HIV-1 p24 and HIV-1/ HIV-2 Ab Not Detected. Blood BLOOD SPECIMEN / Unknown Venipuncture / Unknown 09/18/2023 8:55 AM FIRE MANAGER 09/18/2023 8:56 AM FIRE MANAGER Osmin Abreu MD SEND OUTS Final Result [facility] [address] [place] [address], [place] * COLONOSCOPY (02/14/2016 7:39 AM CDT) [...] adequate candidate for conscious sedation. The PCF-Q290AL [id number] was passed through the anus and advanced [...] malignant neoplasm of colon CPT copyright 2015 [employer]. All rights reserved. The codes documented in this report are preliminary and upon funeral home attendant review may be revised to meet current [...] adequate candidate for conscious sedation. The PCF-Q290AL [id number] was passed through the anus and advanced [...] formalignant neoplasm of colon CPT copyright 2015 [employer]. All rights reserved. The codes documented in this report are preliminary and upon funeral home attendant reviewmay be revised to meet current compliance [...] Payer ID:[id number] (NAIC) Type:Not on file Address: [place] [id number] [employer] Advance Directives * Full Code [...] 10:47 AM 02/15/2014 3:21 PM Care Teams Trim Attacher Relationship Specialty Start Date End Date Osmin Abreu MD [address] [facility] [address] PCP - General Family Practice 03/09/20
--- OUTSIDE RECORDS SUMMARY | 2024-09-17 12:48 | XMS_ITS | Clinical Summary ---
Author Organization [facility] Address [address] [place] [address] Care Team Providers Care Generation Mechanic Helper Name Role Phone Robby Gardner Primary Care Provider [phone] Allergies No known active allergies Medications clobetasol [...] on file Legal Sex Male 4:42 AM GASTROENTEROLOGY TECHNICIAN Gender Identity Not on file Sexual Orientation Not on file Last Filed Vital Signs Vital Sign Reading Time Taken Comments Blood Pressure 106/64 08/22/2017 12:16 PM GASTROENTEROLOGY TECHNICIAN Pulse 84 08/21/2017 11:46 PM GASTROENTEROLOGY TECHNICIAN Temperature 37.1 C (98.7 F) 08/22/2017 12:16 PM GASTROENTEROLOGY TECHNICIAN Respiratory Rate 16 08/22/2017 12:16 PM GASTROENTEROLOGY TECHNICIAN Oxygen Saturation 94% 08/22/2017 12:16 PM GASTROENTEROLOGY TECHNICIAN Inhaled Oxygen Concentration - - Weight 96.7 kg (213 lb 3.2 oz) 08/22/2017 5:00 A M GASTROENTEROLOGY TECHNICIAN Height 190.5 cm (6' 3) 08/20/2017 9:49 AM GASTROENTEROLOGY TECHNICIAN Body Mass Index 26.65 08/20/2017 9:49 AM GASTROENTEROLOGY TECHNICIAN Plan of Treatment Health Maintenance Due Date [...] GLUCOSE BY METER Routine 08/22/2017 5:52 AM GASTROENTEROLOGY TECHNICIAN CA of prostate (H) from Last 3 Months or Most Recently Relevant to Health Maintenance Results * (ABNORMAL) Glucose by meter (08/22/2017 5:52 AM GASTROENTEROLOGY TECHNICIAN) Glucose 114(H) 70 - 99 mg/dL 08/22/2017 6:01 AM GASTROENTEROLOGY TECHNICIAN POINT OF CARE TEST, GLUCOSE 08/22/2017 5:52 AM GASTROENTEROLOGY TECHNICIAN 08/22/2017 6:01 AM GASTROENTEROLOGY TECHNICIAN Luiz Michele MD LAB - [facility] POCT Final Result POINT OF CARE TEST, GLUCOSE from Last 3 Months or Most Recently Relevant to Health Maintenance Insurance [employer] Advance Directives For more information, please contact: [phone] * Full Code (Latest Code Status on File) Date Activated Date Inactivated Comments 08/21/2017 7:47 AM * Full Code Date Activated Date Inactivated Comments 08/20/2017 4:17 PM 08/21/2017 7:47 AM Care Teams Generation Mechanic Helper Relationship Specialty Start Date End Date Robby Gardner [address] [place] [address] PCP - General Family Practice 08/09/17
[2024-09-17 13:04] LABS: Basophils Percent Auto 0.2 % (0.0-3.0); Eosinophils Percent Auto 2.5 % (0.0-7.0); Hematocrit 44.1 % (37.0-53.0); Hemoglobin* 14.9 gm/dL (13.5-17.5); Immature Granulocytes Pct Auto 0.2 %; Lymphocytes Percent Auto 27.8 % (20-44); Mean Corpuscular HGB Conc 34 gm/dL (32-36); Mean Corpuscular Hemoglobin 28 pg (26-34); Mean Corpuscular Volume 84 fL (80-100); Monocytes Percent Auto 8.6 % (0.0-11.0); Neutrophils Percent Auto 60.7 % (42.0-72.0); Platelet Count* 181 K/uL (140-440); RDW Coefficient of Variation % 12.4 % (11.5-15.5); Red Blood Count 5.24 m/uL (4.30-5.90); White Blood Count* 4.42 K/uL (4.50-11.00)
[2024-09-17 13:08] LABS: Slide Review Reflex No
[2024-09-17 13:18] LABS: Chloride* 100 mmol/L (96-114); Potassium* 4.8 mmol/L (3.6-5.1); Sodium* 135 mmol/L (135-149)
[2024-09-17 13:21] LABS: Anion Gap 6 mEq/L (7-15); Blood Urea Nitrogen* 13 mg/dL (7-30); Calcium* 8.9 mg/dL (8.4-10.6); Carbon Dioxide* 29 mmol/L (20-32); Est. Creatinine Clearance* 96.24; Estimated Glomerular Filt Rate 87 ml/min; Glucose* 103 mg/dL (60-115)
[2024-09-17 13:22] LABS: Magnesium* 2.1 mg/dL (1.5-2.6)
[2024-09-17 13:33] LABS: D Dimer Quantitative* 5.97 ug/ml (0.00-0.50)
[2024-09-17 13:44] LABS: NT Pro B Type NatriureticPept* 26 pg/mL; Troponin I* < 0.01 ng/mL (0.01-0.04)
[2024-09-17 13:51] LABS: PCR FLU A Negative PCR FLU A (Negative); PCR FLU B Negative PCR FLU B (Negative); PCR RSV Negative PCR RSV (Negative); SARS PCR* Negative SARS-CoV-2 (Negative)
[2024-09-17 15:21] VITALS: BP 118/84; PULSE 67; RESP 18; TEMP 36.6; O2SAT 96
== END 2024-09-17 15:35 | disposition home or self-care (01) ==
PROVIDERS: Emergency Provider Student in an Organized Health Care Education/Training Program; PCP Family Medicine
DX: R07.9 Chest pain, unspecified (principal)
CPT/HCPCS: 36415; 71046; 71275; 80048; 83735; 83880; 84484; 85025; 85379; 87631; 93005; 99284; 99285; Q9967